=== PATIENT | female | born 1955 | race Caucasian/White ===

== ENCOUNTER 2020-04-02 21:46 | Inpatient (IN) | payer OTHER, SELFPAY ==
[2020-04-02] VITALS (8 sets, daily range): BP systolic 132–175; BP diastolic 63–76; PULSE 80–91; RESP 17–28; TEMP 36.6–36.9; O2SAT 88–97; BMI 44.0
--- NOTE | 2020-04-02 22:15 | EKG12_ITS ---
Test Reason : DYSRHYTHMIA Blood Pressure : / mmHG Vent. Rate : 083 BPM Atrial Rate : 083 BPM P-R Int : 148 ms QRS Dur : 086 ms QT Int : 402 ms P-R-T Axes : 052 041 056 degrees QTc Int : 472 ms Sinus rhythm with sinus arrhythmia with occasional Premature ventricular complexes Possible Left atrial enlargement Borderline ECG Confirmed by EMANUEL MACKAY, SANTOS ([id number]), society editor SHEA GU ([id number]) on 04/06/2020 9:59:46 AM Referred By: LOLI Confirmed By:GRECIA CASTELLANOS MD
--- NOTE | 2020-04-02 22:21 | ED.VIS.GEN ---
History of Present Illness Chief Complaint: Shortness of Breath Informant: Patient Onset: Days Context: Gradual Onset Timing: Continuous Current Severity: Moderate Maximum Severity: Moderate Narrative: Patient is a 64-year-old female with medical history significant for CHF and COPD, not on oxygen, who presents with worsening shortness of breath. Patient states over the past week, she has had increased shortness of breath. She states she cannot walk a distance without getting dyspneic. She states since the holiday season, she has gained 25 pounds. She has been compliant with her Lasix. She does admit to orthopnea and increasing leg edema. She denies chest pain. She denies fever or chills. She denies productive sputum. The patient was admitted in November for CHF exacerbation. She states that she was diuresed almost 10 L and felt markedly improved. Prior similar symptoms: Yes Recent Illness/Hospitalization: No Past Medical History - Allergies and Home Meds Allergies/Adverse Reactions: Allergies latex Allergy (Verified 10/27/14 15:24) Swelling pt states had incidence once when blowing up balloons that face swelled up. Pt unsure if it was latex or the powder oxycodone Allergy (Verified 10/27/14 15:24) Shortness of breath listed as allergy from pcp office-pt unsure if it was the medication or something else Penicillins Allergy (Verified 10/27/14 15:24) Unknown pregabalin [From Lyrica] Allergy (Verified 10/27/14 15:24) Anaphylaxis Primary Care Physician: Paige Gu DO [Primary Care Provider] - Prior records reviewed: Yes Past Medical History: - - COPD, hypertension, hyperlipidemia, CHF Surgical History: cholecystectomy Smoking Status: Former smoker - Family History Maternal Family History: Reports: - - diabetes Paternal Family History: Reports: - Review of Systems General: Denies: Chills, Fever, Sweats Eyes: Denies: Visual changes - bilaterally, Diplopia ENT: Denies: Rhinorrhea, Sore throat Cardiovascular: Denies: Chest pain, Palpitations Respiratory: Reports: Dyspnea, Dyspnea on exertion, Orthopnea. Denies: Cough Gastrointestinal: Denies: Abdominal pain, Nausea, Vomiting, Diarrhea, Melena, Hematochezia Genitourinary: Denies: Dysuria, Hematuria, Frequency Musculoskeletal: Denies: Back pain, Extremity Pain Skin: Denies: Rash, Wounds Neurological: Denies: Headache, Weakness, Numbness Physical Exam Vital Signs/Narrative: Vital Signs Temp Pulse Resp BP Pulse Ox 04/02/20 22:13 97.8 F 87 17 132/63 H 97 04/02/20 21:54 98.2 F 90 28 H 175/76 H 96 04/02/20 21:47 98.3 F 84 28 H 175/76 H 88 Inital Vital Signs reviewed: Yes General: Well nourished, Well developed, No Acute Distress Head: Normocephalic, Atraumatic Eyes: Perrl, EOMI ENT: Moist mucous membranes, No rhinorrhea Neck: Supple, Nontender Cardiovascular: Regular rate, Regular rhythm, No murmurs Respiratory: No distress, Chest nontender, Rales Abdomen: Soft, Nontender, Nondistended, Normal bowel sounds Back: Nontender, Normal Inspection Extremities: Nontender, Edema Skin: Normal color, No rash Neurological: Alert, Oriented x3, Cranial nerves II-XII grossly intact, Normal Strength, Normal Sensation Psychological: Normal affect, Normal Mood Diagnostic/Tx/Re-eval Chest X-Ray - ED: 1 View, Read by ED Physician, Normal, Mediastinum, Chronic Changes, Cardiomegaly, No Infiltrates - Rhythm Strip Rhythm Strip: Sinus Rhythm Rate: 80 Ectopy: None - EKG Initial EKG Interpretation: Sinus Rhythm, No Acute Injury Pattern Prior: No Prior - Medical Decision Making Patient presents to the emergency department with hypoxia, exertional shortness of breath, and weight gain. She does have crackles in both lung bases with a scant wheeze. Screening labs were obtained. EKG was obtained. It does demonstrate sinus rhythm with occasional PVCs. There is no acute ischemic change. Chest x-ray does not show significant effusions. There is some mild cephalization. Her BNP is within normal limits. Cardiac enzymes were also negative. I do feel the patient's exertional hypoxia is multifactorial. She is had significant weight gain and evidence of right-sided heart failure. She also has some scant wheezing. I will treat the patient with steroids and diuretics. I do feel at this point she would benefit from admission given her hypoxia. Impression 1. Exertional hypoxia 2. Dyspnea 3. Mild CHF ED Disposition - Plan for ED Patient: Referrals: Paige Gu DO [Primary Care Provider] -
[2020-04-02 22:55] LABS: Absolute Lymphocyte Count 1.99 X10^3/uL (0.83-4.51); Absolute Neutrophil Count 7.6 X10^3/uL (2.0-7.7); Basophil# 0.03 X10^3/uL; Basophil% 0.3 % (0-1); Eosinophil# 0.28 X10^3/uL; Eosinophils% 2.7 % (0-5); Hematocrit 41.1 % (37-47); Hemoglobin 13.3 g/dL (12.0-15.0); Lymphocyte # 1.99 X10^3/ul (4.0); Mean Corp Hgb Conc 32.4 g/dL (32-36); Mean Corpuscular Volume 95.8 fL (81-99); Mean Platelet Vol. 9.1 fl (6.2-12.0); Monocyte# 0.55 X10^3/uL; Monocyte% 5.2 % (0-10); NRBC Flagged by Analyzer 0 % (0-5); Neutrophil # 7.57 X10^3/uL (2.7-7.7); Neutrophil % 72.2 % (47-70); Platelet Count 227 K/mm3 (150-450); RBC Distribution Width CV 14.6 % (11.6-14.6); RBC Distribution Width SD 50.3 fl (35.1-43.9); Red Blood Count 4.29 M/mm3 (4.2-5.4); White Blood Count 10.5 K/mm3 (4.4-11.0)
[2020-04-02] MEDS: Aspirin 81 MG TAB.CHEW 324 MG PO (23:08)
[2020-04-02 23:11] LABS: BNP,B-Type NATRIURETIC PEPTIDE 67.3 pg/mL (0-100)
[2020-04-02 23:15] LABS: Anion Gap 6 (5-15); BUN 37 mg/dL (7-18); BUN/Creat Ratio 25.3 RATIO (10-20); Calcium,Total 9.6 mg/dL (8.5-10.1); Chloride 107 mmol/L (98-107); Creatinine, Serum 1.46 mg/dL (0.55-1.02); EST Glomerular Filtration Rate 38 mL/min (>60); Est Glom Filt Rate - Afr Amer 47 mL/min (>60); Estimated Creatinine Clearance 35.49 ml/min; Glucose 162 mg/dL (74-106); Magnesium 1.6 mg/dL (1.6-2.6); Potassium 3.5 mmol/L (3.5-5.1); Sodium Level 143 mmol/L (136-145)
--- NOTE | 2020-04-02 23:29 | ED.RN ---
Uses CPAP machine and does not see specialist but states Dr Gu for settings and states she thinks it is set on 17.
--- NOTE | 2020-04-02 23:32 | RAD_ITS ---
STUDY: X-RAY CHEST REASON FOR EXAM: Female, 64 years old. chest pain TECHNIQUE: Single frontal view of the chest. COMPARISON: None. FINDINGS: No pneumothorax or pleural effusion. No focal consolidation. Borderline cardiomegaly. Nonspecific elevation right hemidiaphragm. There are diffuse degenerative changes of the visualized thoracic spine. Normal visualized ribs, clavicles, and shoulders. There is no demonstrated abnormality of the visualized soft tissue structures of the upper abdomen. RAD/Chest 1 View (Portable) IMPRESSION: Borderline cardiomegaly. Nonspecific elevation of the right hemidiaphragm. No focal consolidation identified. Electronically Signed: Mracos Marie MD at 0:15 EST Tel , Service support ,
[2020-04-02] MEDS: Ipratropium/Albuterol Sulfate 3 ML AMPUL.NEB INHALATION (23:50)
[2020-04-03] VITALS (17 sets, daily range): BP systolic 130–164; BP diastolic 60–84; PULSE 66–94; RESP 13–18; TEMP 36.5–37.1; O2SAT 84–98; BMI 57.6; BMI 57.7
--- NOTE | 2020-04-03 | PCM.HP.STD ---
Problem List (1) CHF exacerbation Status: Acute Qualifiers: Heart failure type: diastolic Qualified Code(s): I50.33 - Acute on chronic diastolic (congestive) heart failure (2) COPD exacerbation Status: Acute (3) Hypoxia Status: Acute (4) CKD (chronic kidney disease), stage III Status: Chronic Qualifiers: Chronic kidney disease stage 3 subtype: unspecified whether 3a or 3b Qualified Code(s): N18.30 - Chronic kidney disease, stage 3 unspecified (5) Morbid obesity Status: Chronic (6) Anxiety and depression Status: Chronic (7) Diabetes mellitus, type II Status: Chronic Qualifiers: Diabetes mellitus filler leaf cutter long insulin use: with filler leaf cutter long use Diabetes mellitus complication status: with other specified complication Qualified Code(s): E11.69 - Type 2 diabetes mellitus with other specified complication; 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 of insulin (8) HLD (hyperlipidemia) Status: Chronic Qualifiers: Hyperlipidemia type: unspecified Qualified Code(s): E78.5 - Hyperlipidemia, unspecified (9) Former tobacco use Status: Chronic (10) Neuropathy Status: Chronic (11) HTN (hypertension) Status: Chronic Qualifiers: Hypertension type: essential hypertension Qualified Code(s): I10 - Essential (primary) hypertension History of Present Illness Date of Admission: 04/03/20 Chief Complaint: Dyspnea, edema, orthopnea The patient is a 64 y/o F w/ PMHx: MANNY, Anxiety and Depression, HTN, HLD, Morbid Obesity, Diabetes mellitus type II, Chronic COPD, Chronic CHF unclear type, Former Tobacco use who presents to the [facility] ED on 04/02/20 with history of worsening dyspnea especially over the last week, more severe with any exertion with weight gain of approximately 25 pounds starting this past year during the holidays to now with orthopnea and worsening lower extremity swelling prompting eventual ED presentation for evaluation. Reportedly patient was admitted 11/2019 and treated for CHF exacerbation however the records are not here at [facility] therefore this was at a different facility, possibly facility, noted she had been diuresed significantly (nearly ~ 25 lbs). She notes a home pulse oximeter was 60% with exertion. Work-up in the ED included T 90.3, heart rate 84, BP 175/76, respiratory rate 28, initially 88% on room air with improvement to 97% on 2 L nasal cannula, CBC with WBC 10.5, hemoglobin 13.3, platelet 2 7 platelet 227 without marked shift, BMP with BUN/creatinine 37/1.46, glucose 162 otherwise not marked appearing, magnesium 1.6, troponin 0.030, BNP 67.3, EKG with SR with PVCs without acute evidence of ischemia, chest x-ray with mild appearance congestion, rapid SARS Covid antigen negative. In the ED patient ministered aspirin 324 mg p.o. x1, douneb, lasix and solumedrol. Past Medical History Past Medical History (Chronic Problems): Chronic Problems CKD (chronic kidney disease), stage III (Chronic) Morbid obesity (Chronic) Anxiety and depression (Chronic) Diabetes mellitus, type II (Chronic) HLD (hyperlipidemia) (Chronic) Former tobacco use (Chronic) Neuropathy (Chronic) HTN (hypertension) (Chronic) Allergies latex Allergy (Verified 10/27/14 15:24) Swelling pt states had incidence once when blowing up balloons that face swelled up. Pt unsure if it was latex or the powder oxycodone Allergy (Verified 10/27/14 15:24) Shortness of breath listed as allergy from pcp office-pt unsure if it was the medication or something else Penicillins Allergy (Verified 10/27/14 15:24) Unknown pregabalin [From Lyrica] Allergy (Verified 10/27/14 15:24) Anaphylaxis Home Medications: Ambulatory Orders Medication Instructions Recorded Aspirin [Aspirin, Baby] 81 mg PO DAILY@0800 10/27/14 Cholecalciferol (VIT D3) [Vitamin 1,000 unit PO DAILY 10/27/14 D3] Citalopram [Celexa] 80 mg PO DAILY 10/27/14 Furosemide [Lasix] 40 mg PO DAILY PRN 10/27/14 Lisinopril [Zestril] 40 mg PO DAILY 10/27/14 Modafinil [Provigil] 100 mg PO DAILY 10/27/14 metFORMIN HCl [Glucophage] 1,000 mg PO BIDCM 10/27/14 traMADol [Ultram] 50 - 100 mg PO Q4H PRN PRN 10/27/14 Albuterol IH (ProAir) [Proair Hfa 2 puff INHALATION Q4H PRN PRN 04/02/20 (SP)Vent Pts] Allopurinol [Zyloprim] 200 mg PO DAILYCM 04/02/20 Bumetanide [Bumex] 2 mg PO DAILY 04/02/20 Carvedilol [Coreg] 12.5 mg PO BID 04/02/20 Fluticasone/Salmeterol [Advair 1 puff BID 04/02/20 500-50 Diskus] Gabapentin 600 mg PO TID 04/02/20 Insulin Aspart [Novolog Flexpen] 40 units SC TIDCM 04/02/20 Insulin Detemir [Levemir FlexPen] 60 units SC BID 04/02/20 Ropinirole HCl 8 mg PO QHS 04/02/20 buPROPion XL [Wellbutrin Xl] 150 mg PO DAILY 04/02/20 glipiZIDE [Glucotrol] 5 mg PO DAILY@0730 04/02/20 Surgical History: cholecystectomy, - - Toe amputations for infected diabetic ulcers. 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 Denies: Chills, Fever HEENT: Denies: Head Aches, Sinus Congestion, Sinus Drainage Cardiovascular: Reports: Edema, Orthopnea. Denies: Chest Pain, Palpitations Respiratory: Reports: Shortness of Breath, Shortness of breath upon exertion. Denies: Cough, Shortness of breath at rest, Sputum production Gastrointestinal: Denies: Abdominal Pain, Nausea, Vomiting Genitourinary: Denies: Dysuria Musculoskeletal: Reports: Joint Pain. Denies: Joint Tenderness Skin: Denies: Rash, Wounds Neurological: Denies: Numbness, Tingling, Focal weakness Psychiatric: Reports: Anxiety, Depression. Denies: Homicidal Ideations, Suicidal Ideations Hematologic/ Lymphatic: Denies: Easy Bruising, Easy Bleeding VTE Information - Inpt Only VTE Present on Admission: No VTE Mechan Device Prophylaxis: SCD's VTE Pharm Prophylaxis ordered?: Yes Patient Problems: Active and Suspected Problems CHF exacerbation (Acute) COPD exacerbation (Acute) Hypoxia (Acute) Subjective: Patient seated upright in the ED bed, notes unable to lay flat, notes dyspnea primarily with exertion. Objective: Physical Examination: General: awake, alert, oriented x 3 and cooperative, seated upright in the ED bed in no apparent distress. Skin: normal color, turgor, no icterus, cyanosis. HEENT: AT/NC, EOMI, PERRLA, MMM, no carotid bruits, + JVD. Lungs: Diminished breath sounds, greater bases, moderate effort, seated ari ria straight up in the ED bed, no obvious evidence of distress, minimal rales but very diminished, occasional expiratory wheeze. Heart: Regular rate and rhythm; no gallop, rub audible. Abdomen: soft, morbidly obese, NTTP, difficult to discern distention secondary to habitus, distant normal BS, unable to discern HSM secondary to habitus. Extremities: no cyanosis or clubbing, bilateral lower extremity pedal to proximal aguilar edema, not severely pitting in nature. Neurological: patient awake, alert, oriented as noted; cognitive function intact; pupils equally reactive to light and accomodation; cranial nerves II-XII grossly normal, moving all 4 extremities, no focal deficits, strength severely global decrease secondary to acute presentation and complaints. Psychiatric: affect appears fatigued otherwise normal, no acute evidence of depressive or anxiety feelings. - Physical Exam Vitals/I&O's: Vital Signs Temp Pulse Resp BP Pulse Ox 98.4 F 91 17 134/73 H 96 04/02/20 23:00 04/02/20 23:00 04/02/20 23:00 04/02/20 23:11 04/02/20 23:00 Oxygen Flow Rate (L/min) 2 Oxygen Delivery Method Nasal Cannula Weight: 264 lb 8.875 oz Body Mass Index (BMI) 44.0 Microbiology Past 72 Hours 04/02/20 22:31 Mucosa - Nasopharyngeal SARS-CoV-2 Antigen (Rapid) - Final Laboratory Results 04/02/20 22:45: WBC 10.5, RBC 4.29, Hgb 13.3, Hct 41.1, MCV 95.8, MCH 31.0, MCHC 32.4, RDW Std Deviation 50.3 H, RDW Coeff of Varun 14.6, Plt Count 227, MPV 9.1, Immature Gran % (Auto) 0.600, Neut % (Auto) 72.2 H, Lymph % (Auto) 19.0, Bracken % (Auto) 5.2, Eos % (Auto) 2.7, Baso % (Auto) 0.3, Absolute Neuts (auto) 7.6, Absolute Lymphs (auto) 1.99, Nucleated RBC % 0 04/02/20 22:45: Sodium 143, Potassium 3.5, Chloride 107, Carbon Dioxide 30.0, Anion Gap 6, BUN 37 H, Creatinine 1.46 H, Estim Creat Clear Calc 35.49, Est GFR (MDRD) Af Amer 47 L, Est GFR (MDRD) Non-Af 38 L, BUN/Creatinine Ratio 25.3 H, Glucose 162 H, Calcium 9.6, Magnesium 1.6, Troponin I 0.030 04/02/20 22:45: B-Natriuretic Peptide 67.3 Assessment/Plan All Active Problems CHF exacerbation (Acute) COPD exacerbation (Acute) Hypoxia (Acute) Cellulitis of second toe, right (Acute) Diabetes (Acute) The patient is a 64 y/o F w/ PMHx: MANNY, Anxiety and Depression, HTN, HLD, Morbid Obesity, Diabetes mellitus type II, Chronic COPD, Chronic CHF unclear type, Former Tobacco use who presents to the [facility] ED on 04/02/20 with history of worsening dyspnea especially over the last week, more severe with any exertion with weight gain of approximately 25 pounds starting this past year during the holidays to now with orthopnea and worsening lower extremity swelling prompting eventual ED presentation for evaluation. 1. Exertional Dyspnea, Suspected CHF Exacerbation, Likely Diastolic complicated by #2 with Hypoxia: ED evaluation with EKG with SR with PVCs without acute evidence of ischemia, chest x-ray with mild appearance congestion, trop normal x 1. Patient in the ED with normal BNP despite hx of weight gain and edema as well as noted hypoxia, , patient administered IV lasix in the ED, will admit to PCU, maintain on cardiac telemetry, obtain cardiac enzyme series, obtain serial EKGs, gently diuresis with IV lasix given notable weight gain and edema, monitor I/Os, maintain on intake restriction, continue medical therapy w/ asa, BB, ACEI. Not on statin therapy with plan FLP in a.m. Will obtain TSH, ED magnesium level 1.6. Most recent ECHO noted 10/30/2014 with normal LV systolic function, EF 65%, mildly enlarged LA, mild MVI, trivial TVI, RVSP 36 mmHg, transmitral Doppler flow suggestive of impaired relaxation LV. PRN morphine to decrease afterload, continue oxygen supplementation, if necessary will position w/ upright position with legs off bed to decrease preload. Will place snug Darshan wraps. 2. Acute on Chronic COPD excacerbation with Hypoxia: Will maintain on oxygen with wean as tolerated to room air, continue solumedrol regimen, maintain on ATC duonebs, PRN albuterol, HOB, IS parameters, obtain respiratory viral panel and sputum Cx. Given afebrile, no marked WBC elevation or L shift will defer abx therapy. 3. Chronic Kidney Disease Stage III with renal insufficiency versus progressed disease: Admission BUN/Cr 37/1.46, baseline renal function 1.0, repeat BMP in AM. 4. Morbid Obesity: Weight loss and lifestyle changes encouraged, nutrition consulted. 5. Anxiety and depression: We will continue patient on citalopram and bupropion regimen. 6. Diabetes mellitus type II with neuropathy: We will hold oral regimen, continue home insulin regimen, ADA diet, accu checks w/ ISS, continue home gabapentin regimen. 7. Hypertension: Continue home regimen including Coreg, lisinopril, in addition to IV Lasix as noted, PRN hydralazine. 8. Hyperlipidemia: Not on statin therapy, add moderate dose, FLP in AM. 9. Former tobacco use: Encourage continued tobacco cessation. 10. MANNY: We will placed on BiPAP nightly. 11. DVT prophylaxis: SCDs, Lovenox. 12. CODE status: Patient THONY is her daughter Oksana Aguilar and living will is currently in place. Discussed CODE status at length including difference between FULL code, DNR-CCA and DNR-CC status. Following discussions about the differences in these status, requested DNR-CCA, no intubation status. Advanced Care Planning Face to Face Time: 16 minutes. Inpatient E&M: 53363 Init Hosp L3 Procedures: 54809 Advncd Care Plan 30 Min
[2020-04-03] MEDS: Furosemide 40 MG/4 ML Vial IV ×3 (00:05→17:17)
[2020-04-03] MEDS: MethylPREDNISolone 125 MG/2 ML Vial IV (00:05)
--- NOTE | 2020-04-03 00:52 | ECHOCS_ITS ---
Reason For Study: CHF Procedure This was a 2D Doppler, Color Flow transthoracic echocardiogram. The study was technically difficult. Contrast injection was performed. Exam performed portable in patient room. Left Ventricle Normal LV size. Left ventricular systolic function is normal. The estimated ejection fraction is 70 %. There is evidence of diastolic dysfunction. No regional wall motion abnormalities noted. Right Ventricle Normal RV size. Normal systolic function. Atria The left atrium is mildly enlarged. Normal right atrium. No doppler evidence for ASD. Mitral Valve There is mild mitral annular calcification. Normal mitral valve. Mild (1+) mitral valve insufficiency. Tricuspid Valve Normal tricuspid valve. Trivial tricuspid valve insufficiency. Right ventricular systolic pressure estimated to be 56 mmHg. Aortic Valve Trisinus/trileaflet aortic valve. Mild focal aortic valve calcification. Pulmonic Valve The pulmonic valve is not well visualized. Great Vessels Normal sized aortic root. Pericardium/Pleural No pericardial effusion. Medication Diluted definity 3.0ml given slow IV push to enhance endocardial definition. MMode/2D Measurements & Calculations LVIDd: 5.1 cm IVSd: 1.2 cm Ao root diam: 3.2 cm LVIDs: 3.3 cm LVPWd: 1.2 cm FS: 35.1 % LAV(MOD-bp): 74.9 ml LVAd ap4: 34.9 cm2 SV(MOD-sp4): 89.5 ml LAV(MOD-bp) Indexed: 30.0 ml/m2 EDV(MOD-sp4): 124.3 ml LAV(MOD-sp2): 76.8 ml EDV(sp4-el): 127.8 ml LAV(MOD-sp4): 67.1 ml LVAs ap4: 15.3 cm2 ESV(MOD-sp4): 34.8 ml ESV(sp4-el): 34.7 ml EF(MOD-sp4): 72.0 % EF(sp4-el): 72.9 % SV(sp4-el): 93.2 ml LA A4 area: 22.1 cm2 LA dimension(2D): 4.5 cm RA A4 area: 14.6 cm2 Time Measurements MV dec time: 0.28 sec Doppler Measurements & Calculations MV E max macario: 95.6 cm/sec Lat Peak E' Macario: 7.3 cm/sec Med Peak E' Macario: 5.7 cm/sec MV A max macario: 141.5 cm/sec E/E' lat: 13.1 E/E' med: 16.6 MV E/A: 0.68 MV V2 max: 135.0 cm/sec Ao V2 max: 164.0 cm/sec LV V1 max: 112.8 cm/sec MV max P.3 mmHg Ao max P.8 mmHg LV V1 max P.1 mmHg MV V2 mean: 78.7 cm/sec MV mean P.8 mmHg MV V2 VTI: 32.7 cm TR max macario: 363.2 cm/sec MV P1/2t-pr_phl: 71.0 msec TR max P.8 mmHg Interpretation Summary The study was technically difficult. Contrast injection was performed. Left ventricular systolic function is normal. The estimated ejection fraction is 70 %. The left atrium is mildly enlarged. There is mild mitral annular calcification. Mild (1+) mitral valve insufficiency. Trivial tricuspid valve insufficiency. Mild focal aortic valve calcification. Right ventricular systolic pressure estimated to be 56 mmHg c/w severe pulmonary hypertension. There is evidence of diastolic dysfunction. Ordering Physician: Zayda Bowman Referring Physician: LACI HERNANDEZ Performed By: Heydi Pride, RDCS, RVT
[2020-04-03] MEDS: Gabapentin 600 MG Tablet PO ×4 (02:02→21:36)
[2020-04-03] MEDS: Carvedilol 12.5 MG Tablet PO ×3 (02:02→21:32)
[2020-04-03 02:10] LABS: Bedside Glucose 171 mg/dL (70-110)
[2020-04-03] MEDS: Pramipexole Di-HCl 1 MG Tablet 1.5 MG PO ×2 (02:52→21:37)
--- NOTE | 2020-04-03 05:55 | EKG12_ITS ---
Test Reason : AM EKG Blood Pressure : / mmHG Vent. Rate : 072 BPM Atrial Rate : 072 BPM P-R Int : 152 ms QRS Dur : 094 ms QT Int : 420 ms P-R-T Axes : 062 064 063 degrees QTc Int : 459 ms Sinus rhythm with marked sinus arrhythmia Otherwise normal ECG When compared with ECG of 02-APR-2020 22:21, MANUAL COMPARISON REQUIRED, DATA IS UNCONFIRMED Confirmed by WINSOME MACKAY, JEANNIE ([id number]), newspaper photo editor SHEA GU ([id number]) on 04/07/2020 1:05:19 PM Referred By: DR ROSADO Confirmed By:JEANNIE SCHUMACHER MD
[2020-04-03 06:15] LABS: Absolute Lymphocyte Count 0.86 X10^3/uL (0.83-4.51); Absolute Neutrophil Count 6.8 X10^3/uL (2.0-7.7); Basophil# 0.03 X10^3/uL; Basophil% 0.4 % (0-1); Eosinophil# 0.02 X10^3/uL; Eosinophils% 0.3 % (0-5); Hematocrit 40.7 % (37-47); Hemoglobin 13.3 g/dL (12.0-15.0); Lymphocyte # 0.86 X10^3/ul (4.0); Mean Corp Hgb Conc 32.7 g/dL (32-36); Mean Corpuscular Hgb 31.4 pg (27.0-32.0); Mean Platelet Vol. 9.6 fl (6.2-12.0); Monocyte# 0.11 X10^3/uL; Monocyte% 1.4 % (0-10); NRBC Flagged by Analyzer 0 % (0-5); Neutrophil # 6.76 X10^3/uL (2.7-7.7); Neutrophil % 86.3 % (47-70); Platelet Count 209 K/mm3 (150-450); RBC Distribution Width CV 14.6 % (11.6-14.6); RBC Distribution Width SD 50.4 fl (35.1-43.9); Red Blood Count 4.24 M/mm3 (4.2-5.4); White Blood Count 7.8 K/mm3 (4.4-11.0)
[2020-04-03] MEDS: 0.9% Saline Lock 10 ML Syringe IV ×3 (06:27→17:18)
[2020-04-03 06:49] LABS: ALB/GLOB Ratio 0.8 RATIO (0.9-2.4); AST(SGOT) 14 U/L (15-37); Alanine Aminotransfer ALT/SGPT 22 U/L (13-56); Albumin, Serum 3.3 g/dL (3.2-5.0); Alkaline Phosphatase 101 U/L (45-117); Anion Gap 10 (5-15); BUN 38 mg/dL (7-18); BUN/Creat Ratio 25.5 RATIO (10-20); Calcium,Total 9.1 mg/dL (8.5-10.1); Chloride 103 mmol/L (98-107); Cholesterol 182 mg/dL (200); Creatinine, Serum 1.49 mg/dL (0.55-1.02); EST Glomerular Filtration Rate 38 mL/min (>60); Est Glom Filt Rate - Afr Amer 45 mL/min (>60); Estimated Creatinine Clearance 34.77 ml/min; Globulin 4.1 g/dL (2.2-4.2); Glucose 354 mg/dL (74-106); High Density Lipoprotein 44 mg/dL; Protein, Total 7.4 g/dL (6.4-8.2); Sodium Level 140 mmol/L (136-145); Triglycerides 92 mg/dL; Very Low Density Lipoprotein 18 mg/dL (5-40)
[2020-04-03] MEDS: Ipratropium/Albuterol Sulfate 3 ML AMPUL.NEB INHALATION ×4 (07:25→18:29)
[2020-04-03] MEDS: Insulin Lispro 100 UNIT/ML INSULN.PEN 40 UNIT SC ×3 (08:16→16:42)
[2020-04-03] MEDS: Insulin Lispro 100 UNIT/ML INSULN.PEN SC ×4 (08:17→21:35)
[2020-04-03] MEDS: buPROPion (XL) 150 MG TABLET.XL PO (08:20)
[2020-04-03] MEDS: Allopurinol 100 MG Tablet 200 MG PO (08:20)
[2020-04-03 08:21] LABS: Bedside Glucose 434 mg/dL (70-110)
[2020-04-03] MEDS: FLUoxetine 20 MG Capsule 40 MG PO (08:21)
[2020-04-03] MEDS: Lisinopril 40 MG Tablet PO (08:21)
[2020-04-03] MEDS: Aspirin 81 MG TAB.CHEW PO (08:21)
[2020-04-03] MEDS: Tolterodine Tartrate 2 MG CAP.SA PO (08:22)
[2020-04-03] MEDS: Enoxaparin 40 MG/0.4 ML Syringe SC (08:35)
[2020-04-03 08:48] LABS: Procalcitonin 0.12 ng/mL (0.00-0.09)
--- NOTE | 2020-04-03 10:30 | CASEMGMT ---
DEREK IYER assessment: Face to Face with patient for initial transition planning/care coordination assessment. DEREK IYER introduced self and role at [facility], pt voices understanding and consents to assessment. Pt is sitting up in bed in no distress on 3L nc at this time. Pt is A/Ox4 and answers all questions appropriately at this time. Care providers, pharmacy, and demographics verified, pt only wants daughter listed at this time. Presentation: Hx of CHF, COPD-c/o trouble breathing, hypoxia last night and today per pt. Pt states does not have home oxygen. 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 Reynoso at this time as a friend recommended. Pt given contact for Dr. Reynoso and local pulmonary dr's per daughter request. Preferred Pharmacy: [facility] Insurance: MMO Prescription Benefit: MMO Living Will/HPOA: Pt has LW/HPOA and is aware that they are on file at [facility] at this time. Pt's daughter, Oksana Felix, is HPOA. LNOK: Oksana Felix, daughter/HPOA Living Arrangements: Pt states lives with in 1 story home with 3 steps in and states no concerns at home. 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 Pt states does use assistive devices at home for ADL's. Transportation: Pt states drives self and states no transportation concerns. DME/HHC: Pt states has the following DME: canex2, walker, w/c, grab bars, shower chair, and used cpap(from a friend). Pt states was tested and qualified for bipap 4-5 years ago but was going to have $50 co-pay for 10 months and states could not afford so she got a cpap from a friend and has been using since. Per pt, she only uses about 2-4hrs/night at this time. Pt states she has been working with Dr. Gu and Gillian at [facility] trying to see what else she can get as her breathing has been getting worse. Per Gillian at [facility], they have been trying to see if pt would qualify for NIV at this time as this would also assist with her CHF and pt could get financial assist with the NIV as well. Pt has not had recent PFT's and does not currently see pulmonology and is reluctant 'to see more doctors' at this time. Per Gillian, they could possibly qualify pt with an ABG. Dr. Grissom aware and ABG on room air ordered at this time. CM to follow. Pt states has had HHC in the past but has not been to SNF. Pt voices no concerns with going home at time of discharge. Pt is on disability. Pt states has not smoked cigarettes in years and rarely drinks ETOH. Pt states no further concerns/needs at this time. CM to follow for NIV order and any further discharge planning/needs. Advised pt to ask for CM if any further questions/concerns/needs arise, voices understanding. Pt Goal: Home Plan: Home Noel REED CM
[2020-04-03 11:45] LABS: Bedside Glucose 436 mg/dL (70-110)
[2020-04-03 12:40] LABS: Base Excess 1 mmol/L (-2 to +2); Bicarbonate 25.2 mmol/L (22-26); Blood Gas Specimen Type ART; PO2 66 mmHG (75-100); SITE L Radial; SO2 93 % (95-99); Total Carbon Dioxide 26 mmol/L; pCO2 37.3 mmHg (35-45); pH 7.44 (7.35-7.45)
[2020-04-03 16:50] LABS: Bedside Glucose 432 mg/dL (70-110)
--- NOTE | 2020-04-03 17:29 | CCHN_ITS ---
Hospitalist Note Patient was seen and examined today, she has a past history of diastolic heart failure and was on the hospital in [place] in November of last year. Patient's EF at that time was normal. Patient has obstructive sleep apnea and is noncompliant with treatment due to the cost of BiPAP. I obtain an echocardiogram on the patient today which showed normal EF and evidence of severe pulmonary hypertension. Patient will need follow-up as an outpatient with the pulmonary medicine physician which I will discuss with her. I did an arterial blood gas on her today on room air at rest which showed a PO2 of 66 at rest, her PCO2 was 37.3. We will continue IV Lasix for now and I have stopped her IV Solu-Medrol because I do not think she has an exacerbation of COPD at this time, patient has no wheezing and breath sounds are diminished bilateral. I have no solution at the present time for the fact the patient cannot afford $60 a month for her BiPAP. I have recommended that she call [facility] or [facility] to see if they have refurbished BiPAP.
[2020-04-03] MEDS: Budesonide Respules 0.5 MG/2 ML AMPUL.NEB. INHALATION (18:29)
[2020-04-03 21:36] LABS: Bedside Glucose 392 mg/dL (70-110)
[2020-04-03] MEDS: Atorvastatin Calcium 40 MG Tablet PO (21:36)
--- NOTE | 2020-04-03 23:00 | CPS ---
Patient refuses to wear the bipap at night
[2020-04-04] VITALS (13 sets, daily range): BP systolic 106–132; BP diastolic 45–114; PULSE 62–91; RESP 12–20; TEMP 35.9–36.7; O2SAT 84–97
[2020-04-04] MEDS: Gabapentin 600 MG Tablet PO ×2 (06:44→14:37)
[2020-04-04 06:55] LABS: Bedside Glucose 252 mg/dL (70-110)
[2020-04-04] MEDS: Budesonide Respules 0.5 MG/2 ML AMPUL.NEB. INHALATION (06:57)
[2020-04-04] MEDS: Ipratropium/Albuterol Sulfate 3 ML AMPUL.NEB INHALATION ×2 (06:57→11:11)
[2020-04-04 07:27] LABS: Anion Gap 9 (5-15); BUN 63 mg/dL (7-18); BUN/Creat Ratio 33.7 RATIO (10-20); Chloride 101 mmol/L (98-107); Creatinine, Serum 1.87 mg/dL (0.55-1.02); EST Glomerular Filtration Rate 29 mL/min (>60); Est Glom Filt Rate - Afr Amer 35 mL/min (>60); Estimated Creatinine Clearance 27.71 ml/min; Glucose 262 mg/dL (74-106); Potassium 4.1 mmol/L (3.5-5.1); Sodium Level 138 mmol/L (136-145)
[2020-04-04 09:05] LABS: Bedside Glucose 271 mg/dL (70-110)
[2020-04-04] MEDS: Insulin Lispro 100 UNIT/ML INSULN.PEN 40 UNIT SC ×2 (09:10→11:15)
[2020-04-04] MEDS: Insulin Lispro 100 UNIT/ML INSULN.PEN SC ×3 (09:10→21:02)
[2020-04-04] MEDS: Enoxaparin 40 MG/0.4 ML Syringe SC (09:11)
[2020-04-04] MEDS: Tolterodine Tartrate 2 MG CAP.SA PO (09:11)
[2020-04-04] MEDS: FLUoxetine 20 MG Capsule 40 MG PO (09:11)
[2020-04-04] MEDS: Allopurinol 100 MG Tablet 200 MG PO (09:11)
[2020-04-04] MEDS: Carvedilol 12.5 MG Tablet PO ×2 (09:11→21:02)
[2020-04-04] MEDS: Aspirin 81 MG TAB.CHEW PO (09:11)
[2020-04-04] MEDS: Lisinopril 40 MG Tablet PO (09:11)
[2020-04-04] MEDS: buPROPion (XL) 150 MG TABLET.XL PO (09:12)
[2020-04-04] MEDS: Furosemide 40 MG/4 ML Vial IV (09:12)
[2020-04-04] MEDS: 0.9% Saline Lock 10 ML Syringe IV ×2 (09:13→21:04)
[2020-04-04 11:40] LABS: Bedside Glucose 205 mg/dL (70-110)
--- NOTE | 2020-04-04 12:46 | NURSING ---
Patient refusing to complete home oxygenation testing. Patient states I will not go home with any oxygen, I am not to that point yet Documented at rest on room air and walking on room air but patient would not allow for oxygen to be applied and do walking test with oxygen.
--- NOTE | 2020-04-04 16:14 | PN_ITS ---
Patient Problems: Active and Suspected Problems CHF exacerbation (Acute) Hypoxia (Acute) Subjective: Patient was seen and examined today, she initially did not want to go home on supplemental oxygen, I talked with her at length about the importance of using oxygen if she needs it and she is agreed to consider it if she needs it on discharge. Patient's creatinine has elevated somewhat today and I have decided to change her over to oral Bumex and recheck her labs in the morning. I will again walker tomorrow to see if she qualifies for home O2, she stated her family would probably help her with BiPAP and I have given nursing the order for her to be on BiPAP tonight if they can determine her settings with 2 L of O2. - Physical Exam Vitals/I&O's: Vital Signs Temp Pulse Resp BP Pulse Ox 97.9 F 73 18 106/61 90 04/04/20 10:50 04/04/20 15:00 04/04/20 10:50 04/04/20 10:50 04/04/20 12:45 Oxygen Flow Rate (L/min) [ 0 AMBULATING on Room Air] Oxygen Flow Rate (L/min) [At 0 REST on Room Air] Oxygen Flow Rate (L/min) 3 Oxygen Delivery Method Room Air Weight: 156.6 kg Body Mass Index (BMI) 57.6 Intake and Output for Last 24 Hours 04/02/20 04/03/20 04/04/20 23:59 23:59 23:59 Intake Total 1600 / 1600 540 / 540 Output Total 2700 / 2700 200 / 200 Balance -1100 / -1100 340 / 340 General: Alert, Oriented x3, Cooperative, No apparent distress, Well developed, Well nourished HEENT: Atraumatic, PERRLA, EOMI, Normocephalic Oral: Moist Mucosa Neck: Supple, No JVD, Trachea Midline, Thyroid Normal Size and Texture Lungs: Clear to auscultation, No rhonchi, No wheeze, Diminished Cardiovascular: Regular rate, Regular Rhythm, Normal S1, Normal S2, No murmurs, PMI Normal, No rub noted, No Gallop Abdomen: Bowel Sounds Present, Soft, Non Tender, Non-Distended, Obese Extremities: No clubbing, No cyanosis, Capillary Refill Less than 3 Seconds Skin: No rashes, No breakdown Musculoskeletal: No Tenderness to Palpation of Joints or Extremities Neurological: Cranial nerves II-XII grossly intact, Neuro grossly intact, Sensory exam intact to light touch and pain Psych/Mental Status: Normal Affect, Appropriate, Alert and oriented to time, place, person, mood and affect Microbiology Past 72 Hours 04/04/20 00:55 Sputum, Expectorated/Coughed Gram Stain - Final 04/03/20 03:00 Mucosa - Nasopharyngeal Respiratory Panel (PCR) - Final 04/02/20 22:31 Mucosa - Nasopharyngeal SARS-CoV-2 Antigen (Rapid) - Final Laboratory Results 04/03/20 16:41: POC Glucose 432 H 04/03/20 21:26: POC Glucose 392 H 04/04/20 06:43: POC Glucose 252 H 04/04/20 06:57: Sodium 138, Potassium 4.1, Chloride 101, Carbon Dioxide 28.0, Anion Gap 9, BUN 63 H, Creatinine 1.87 H, Estim Creat Clear Calc 27.71, Est GFR (MDRD) Af Amer 35 L, Est GFR (MDRD) Non-Af 29 L, BUN/Creatinine Ratio 33.7 H, Glucose 262 H, Calcium 9.0 04/04/20 09:02: POC Glucose 271 H 04/04/20 11:14: POC Glucose 205 H Current Medications Acetaminophen (Acetaminophen 325 Mg Tablet) 650 mg PO Q6H PRN PRN PRN Reason: Pain Score 1-10/Temp > 100.7 F Albuterol Sulfate (Albuterol 2.5 Mg/3 Ml Vial.Neb.) 2.5 mg INHALATION Q2H PRN PRN PRN Reason: Dyspnea, wheezing Albuterol/Ipratropium (Ipratropium/Albuterol Sulfate 3 Ml Ampul.Neb) 3 ml INHALATION Q4HWA.RT [facility] Last Admin: 04/04/20 11:11 Dose: 3 ml Documented by: Allopurinol (Allopurinol 100 Mg Tablet) 200 mg PO DAILYCM [facility] Last Admin: 04/04/20 09:11 Dose: 200 mg Documented by: Aspirin (Aspirin 81 Mg Tab.Chew) 81 mg PO DAILY@0800 [facility] Last Admin: 04/04/20 09:11 Dose: 81 mg Documented by: Atorvastatin Calcium (Atorvastatin Calcium 40 Mg Tablet) 40 mg PO QHS [facility] Last Admin: 04/03/20 21:36 Dose: 40 mg Documented by: Budesonide (Budesonide Respules 0.5 Mg/2 Ml Ampul.Neb.) 0.5 mg INHALATION BID.RT [facility] Last Admin: 04/04/20 06:57 Dose: 0.5 mg Documented by: Bumetanide (Bumetanide 0.5 Mg Tablet) 1 mg PO Q12 [facility] Bupropion HCl (Bupropion (Xl) 150 Mg Tablet.Xl) 150 mg PO DAILY [facility] Last Admin: 04/04/20 09:12 Dose: 150 mg Documented by: Carvedilol (Carvedilol 12.5 Mg Tablet) 12.5 mg PO BID [facility] Last Admin: 04/04/20 09:11 Dose: 12.5 mg Documented by: Cholecalciferol (Cholecalciferol (Vit D3) 1,000 Unit (25mcg)) 1,000 unit PO DAILY [facility] Last Admin: 04/04/20 09:12 Dose: 1,000 unit Documented by: Enoxaparin Sodium (Enoxaparin 40 Mg/0.4 Ml Syringe) 40 mg SC DAILY [facility] Last Admin: 04/04/20 09:11 Dose: 40 mg Documented by: Fluoxetine HCl (Fluoxetine 20 Mg Capsule) 40 mg PO DAILY [facility] Last Admin: 04/04/20 09:11 Dose: 40 mg Documented by: Gabapentin (Gabapentin 400 Mg Capsule) 400 mg PO TIDCM [facility] Guaifenesin (Guaifenesin 10 Ml Udc (200mg/10ml)) 20 ml PO Q4H PRN PRN PRN Reason: COUGH Sodium Chloride () 250 mls @ 15 mls/hr IV .[id number] PRN PRN Reason: Saline Flush Sodium Chloride () 250 mls @ 15 mls/hr IV .[id number] PRN PRN Reason: Additional IVPB Infusion Insulin Glargine (Insulin Glargine 100 Units/Ml Pen) 60 units SC BID [facility] Last Admin: 04/04/20 09:12 Dose: 60 units Documented by: Insulin Human Lispro (Insulin Lispro 100 Unit/Ml Insuln.Pen) 40 unit SC TIDCM [facility] Last Admin: 04/04/20 11:15 Dose: 40 units Documented by: Insulin Human Lispro (Insulin Lispro 100 Unit/Ml Insuln.Pen) 0 unit SC ACHS [facility]; Protocol Last Admin: 04/04/20 11:16 Dose: 2 units Documented by: Lisinopril (Lisinopril 40 Mg Tablet) 40 mg PO DAILY [facility] Last Admin: 04/04/20 09:11 Dose: 40 mg Documented by: Melatonin (Melatonin 3 Mg Tablet) 3 mg PO QHS PRN PRN PRN Reason: INSOMNIA Ondansetron HCl (Ondansetron 4 Mg/2 Ml Vial) 4 mg IV Q8H PRN PRN PRN Reason: NAUSEA/VOMITING Pramipexole Dihydrochloride (Pramipexole Di-Hcl 1 Mg Tablet) 1.5 mg PO QHS [facility] Last Admin: 04/03/20 21:37 Dose: 1.5 mg Documented by: Senna/Docusate Sodium (Senna/Docusate Sodium 1 Tablet) 2 tablet PO BID PRN PRN PRN Reason: Constipation Sodium Chloride (0.9% Saline Lock 10 Ml Syringe) 10 - 40 ml IV UD PRN PRN Reason: SALINE FLUSH Last Admin: 04/04/20 09:13 Dose: 10 ml Documented by: Tolterodine Tartrate (Tolterodine Tartrate 2 Mg Cap.Sa) 2 mg PO DAILY [facility] Last Admin: 04/04/20 09:11 Dose: 2 mg Documented by: Tramadol HCl (Tramadol 50 Mg Tablet) 50 - 100 mg PO Q4H PRN PRN PRN Reason: pain [id number] Medical Necessity - Tobacco Use Smoking Status: Former smoker Tobacco Use: Non-smoker Assessment/Plan All Active Problems CHF exacerbation (Acute) COPD exacerbation (Ruled-out) Hypoxia (Acute) Cellulitis of second toe, right (Resolved) #1 acute on chronic diastolic congestive heart failure-patient's IV Lasix was stopped, she was put on oral Bumex #2 severe pulmonary hypertension-I talked at length with the patient about the importance of seeing a grant specialist as an outpatient #3 obstructive sleep apnea-patient will need to get BiPAP set up as an outpatient #4 morbid obesity #5 type 2 diabetes #6 chronic kidney disease stage III secondary to type 2 diabetes #7 chronic obstructive pulmonary disease #8 noncompliance with medical regimen-patient admitted to this examiner today that she does not use her inhalers as directed home I have urged her to use her Advair twice a day and her proair inhaler 4 times a day. #9 hypoxia secondary to #1 and #7-I will check the patient's pulse ox at rest and ambulating on room air tomorrow to determine whether she meets criteria for oxygen #10 neuropathy secondary to type 2 diabetes #11 essential hypertension #12 anxiety and depression Inpatient E&M: 75451 Subs Hosp L2
[2020-04-04] MEDS: Gabapentin 400 MG Capsule PO (16:38)
[2020-04-04] MEDS: Bumetanide 0.5 MG Tablet 1 MG PO (18:00)
[2020-04-04 20:55] LABS: Bedside Glucose 78 mg/dL (70-110)
[2020-04-04] MEDS: Atorvastatin Calcium 40 MG Tablet PO (21:03)
[2020-04-04] MEDS: Pramipexole Di-HCl 1 MG Tablet 1.5 MG PO (21:03)
[2020-04-04 22:10] LABS: Bedside Glucose 224 mg/dL (70-110)
[2020-04-05] VITALS (7 sets, daily range): BP systolic 111–119; BP diastolic 41–53; PULSE 71–81; RESP 18; TEMP 36–36.8; O2SAT 85–99
[2020-04-05 01:16] LABS: Bedside Glucose 170 mg/dL (70-110)
[2020-04-05 07:03] LABS: Anion Gap 13 (5-15); BUN 87 mg/dL (7-18); BUN/Creat Ratio 37.2 RATIO (10-20); Calcium,Total 8.6 mg/dL (8.5-10.1); Chloride 99 mmol/L (98-107); Creatinine, Serum 2.34 mg/dL (0.55-1.02); EST Glomerular Filtration Rate 22 mL/min (>60); Est Glom Filt Rate - Afr Amer 27 mL/min (>60); Estimated Creatinine Clearance 22.14 ml/min; Glucose 210 mg/dL (74-106); Potassium 3.9 mmol/L (3.5-5.1); Sodium Level 139 mmol/L (136-145)
[2020-04-05] MEDS: Allopurinol 100 MG Tablet 200 MG PO (07:38)
[2020-04-05] MEDS: Gabapentin 400 MG Capsule PO ×2 (07:38→11:15)
[2020-04-05] MEDS: Insulin Lispro 100 UNIT/ML INSULN.PEN SC (07:39)
[2020-04-05] MEDS: Insulin Lispro 100 UNIT/ML INSULN.PEN 40 UNIT SC (07:39)
[2020-04-05] MEDS: Aspirin 81 MG TAB.CHEW PO (07:39)
[2020-04-05 07:56] LABS: Bedside Glucose 216 mg/dL (70-110)
[2020-04-05] MEDS: Carvedilol 12.5 MG Tablet PO (09:34)
[2020-04-05] MEDS: Enoxaparin 40 MG/0.4 ML Syringe SC (09:34)
[2020-04-05] MEDS: 0.9% Saline Lock 10 ML Syringe IV (09:35)
[2020-04-05] MEDS: Tolterodine Tartrate 2 MG CAP.SA PO (09:35)
[2020-04-05] MEDS: FLUoxetine 20 MG Capsule 40 MG PO (09:35)
[2020-04-05] MEDS: buPROPion (XL) 150 MG TABLET.XL PO (09:36)
[2020-04-05] MEDS: Lisinopril 40 MG Tablet PO (09:37)
[2020-04-05 11:45] LABS: Bedside Glucose 122 mg/dL (70-110)
--- NOTE | 2020-04-05 11:47 | DCINST_ITS ---
- Discharge Diagnoses Current Active Problems: Current Active and Chronic Problems CHF exacerbation (Acute) Hypoxia (Acute) CKD (chronic kidney disease), stage III (Chronic) Morbid obesity (Chronic) Anxiety and depression (Chronic) Diabetes mellitus, type II (Chronic) HLD (hyperlipidemia) (Chronic) Former tobacco use (Chronic) Neuropathy (Chronic) HTN (hypertension) (Chronic) You will use the following diet at home:: Calorie/Carbohydrate Controlled (specify 1200, 1400, etc) - 1800 cheryl Your food should be the consistency of: Regular Your liquids should be the consistency of: Regular/Thin Discharge Activity: Return to Normal Activity Weight Bearing Status: Full weight bearing Additional Instructions: Oxygen at 3 liters/min on exertion and when sleeping Arrange for your Bipap as soon as possible Allergies/Adverse Reactions: Allergies latex Allergy (Verified 10/27/14 15:24) Swelling pt states had incidence once when blowing up balloons that face swelled up. Pt unsure if it was latex or the powder oxycodone Allergy (Verified 10/27/14 15:24) Shortness of breath listed as allergy from pcp office-pt unsure if it was the medication or something else Penicillins Allergy (Verified 10/27/14 15:24) Unknown pregabalin [From Lyrica] Allergy (Verified 10/27/14 15:24) Anaphylaxis Medications to take at Discharge Aspirin [Aspirin, Baby] 81 mg PO DAILY@0800 10/27/14 Cholecalciferol (VIT D3) [Vitamin D3] 5,000 unit PO TU 10/27/14 Lisinopril [Zestril] 40 mg PO DAILY 10/27/14 Modafinil [Provigil] 100 mg PO DAILY 10/27/14 traMADol [Ultram] 50 - 100 mg PO Q4H PRN PRN 10/27/14 Allopurinol [Zyloprim] 200 mg PO DAILYCM 04/02/20 Carvedilol [Coreg] 12.5 mg PO BID 04/02/20 Gabapentin 600 mg PO Q4H PRN PRN 04/02/20 Insulin Detemir [Levemir FlexPen] 60 units SC BID 04/02/20 Ropinirole HCl 8 mg PO QHS 04/02/20 buPROPion XL [Wellbutrin Xl] 150 mg PO DAILY 04/02/20 glipiZIDE [Glucotrol] 5 mg PO DAILY@0730 04/02/20 Colchicine 0.6 mg PO PRN PRN 04/03/20 Fluoxetine HCl 40 mg PO DAILY 04/03/20 Oxybutynin Chloride [Oxybutynin Chloride ER] 5 mg PO DAILY 04/03/20 Albuterol IH (ProAir) [Proair Hfa] 2 puff INHALATION UD PRN #1 inhaler 04/05/20 Atorvastatin Calcium [Lipitor] 40 mg PO QHS #30 tab 04/05/20 Bumetanide [Bumex] 1 mg PO BID #1 tablet 04/05/20 Fluticasone/Salmeterol [Advair 500-50 Diskus] 1 puff IH BID #0 04/05/20 Insulin Aspart [Novolog Flexpen] 30 units SC TIDCM #1 04/05/20 The following prescriptions were given: Bumetanide [Bumex] 1 mg PO BID #1 tablet Atorvastatin Calcium [Lipitor] 40 mg PO QHS #30 tab Transmission Status: Pending to [facility] Insulin Aspart [Novolog Flexpen] 30 units SC TIDCM #1 Albuterol IH (ProAir) [Proair Hfa] 2 puff INHALATION UD PRN #1 inhaler PRN Reason: Cough Primary Care Physician: Paige Gu DO [Primary Care Provider] - Please follow up with your Primary Care Physician in: in 7-10 days Test Results: Test results from this visit will be discussed in further detail at your follow- up appointment, if applicable.
--- NOTE | 2020-04-05 12:12 | PCM.DC.SUM ---
Discharge Date and Diagnosis - Problem List Patient Problems: Active and Suspected Problems CHF exacerbation (Acute) Hypoxia (Acute) Date of Admission: 04/03/20 Date of Discharge: 04/05/20 - Primary Discharge Diagnosis Acute Problems: Active Problems #1 acute on chronic diastolic congestive heart failure #2 severe pulmonary hypertension #3 obstructive sleep apnea #4 morbid obesity #5 type 2 diabetes #6 chronic kidney disease stage III secondary to type 2 diabetes #7 chronic obstructive pulmonary disease #8 noncompliance with medical regimen #9 hypoxia secondary to #1 and #7 #10 neuropathy secondary to type 2 diabetes #11 essential hypertension #12 anxiety and depression - Secondary Discharge Diagnosis Chronic Problems: Chronic Problems CKD (chronic kidney disease), stage III (Chronic) Morbid obesity (Chronic) Anxiety and depression (Chronic) Diabetes mellitus, type II (Chronic) HLD (hyperlipidemia) (Chronic) Former tobacco use (Chronic) Neuropathy (Chronic) HTN (hypertension) (Chronic) Diabetes (Chronic) Hospital Course and Treatment Operations: None Procedures: 2-D Echocardiogram Summary of Care Provided: The patient is a 64 year old F was seen in the emergency room at [facility] with chief complaint of shortness of breath, she denied any fevers or chills. Patient stated that she was admitted at [facility] November 2019 for CHF exacerbation in the past. Work-up in the ER included EKG which showed normal sinus rhythm without acute injury, chest x-ray does not show significant effusions there is some mild congestive changes noted, beta natruretic peptide was within normal limits, cardiac enzymes were negative. Patient was felt to have CHF and was admitted to PCU, she was given IV Lasix and her renal function was monitored. She had an echocardiogram performed which showed a normal ejection fraction with severe pulmonary hypertension. I had many conversations with the patient, she was not taking her home inhalers correctly and I stressed that she must use them on a program basis. On 04/05/2020, patient was tested for home oxygen, at rest on room air, her O2 sat was 91%, on ambulation on room air, it was 85%, and ambulation with 3 L of oxygen was 94%. Patient was set up for home O2 and instructed to use it on ambulation at 3 L/min and also when she sleeps at night. She is expected to use portable oxygen within the house and outside the house. Patient was also instructed to follow-up and get her BiPAP, she had been reluctant to pay for the BiPAP due to lack of money, she states that her son has offered to buy her BiPAP for her. She was also instructed to follow-up with a medical technician assistant for further care-I talked with her PCP also and went over the case with her as well as her hospital course. Patient's creatinine was elevated at the time of discharge, I think this was secondary to IV Lasix and she was instructed to get it rechecked when she sees her family physician and I also notified her family physician of this fact. On 04/05/2020, patient was seen and examined: On examination she appeared in good health and spirits, she does not appear to be in any distress. Vital signs as documented. Skin warm and dry and without overt rashes. Neck without JVD, thyroid appears normal, trachea is midline, neck is supple. Lungs clear, decreased breath sounds were noted bilaterally. Heart exam notable for regular rhythm, normal sounds and absence of murmurs, rubs or gallops. Abdomen unremarkable and without evidence of organomegaly, masses, or abdominal aortic enlargement, bowel sounds are present in all 4 quadrants, no abdominal tenderness was noted. Extremities nonedematous, no cyanosis was noted, no clubbing was noted. Neuro: Cranial nerves II through XII are grossly intact, no focal motor deficits were noted, sensation to light touch and pinprick is intact, motor exam 5/5 throughout. Psych: Patient is alert and oriented x3, she does not appear anxious or depressed, she does not appear agitated. On 04/05/2020, patient was seen and examined and felt to be in stable condition for discharge home. Patient Problems: Active and Suspected Problems CHF exacerbation (Acute) Hypoxia (Acute) - Physical Exam Vitals/I&O's: Vital Signs Temp Pulse Resp BP Pulse Ox 98.0 F 81 18 119/41 L 91 04/05/20 09:30 04/05/20 09:30 04/05/20 09:30 04/05/20 09:30 04/05/20 09:58 Oxygen Flow Rate (L/min) [ 3 AMBULATION with Oxygen] Oxygen Flow Rate (L/min) [ 0 AMBULATING on Room Air] Oxygen Flow Rate (L/min) [At 0 REST on Room Air] Oxygen Flow Rate (L/min) 3 Oxygen Delivery Method Room Air Weight: 156 kg Body Mass Index (BMI) 57.6 Intake and Output for Last 24 Hours 04/03/20 04/04/20 04/05/20 23:59 23:59 23:59 Intake Total 1600 / 1600 1220 / 1220 200 / 200 Output Total 2700 / 2700 300 / 300 Balance -1100 / -1100 920 / 920 200 / 200 Microbiology Past 72 Hours 04/04/20 00:55 Sputum, Expectorated/Coughed Gram Stain - Final 04/03/20 03:00 Mucosa - Nasopharyngeal Respiratory Panel (PCR) - Final 04/02/20 22:31 Mucosa - Nasopharyngeal SARS-CoV-2 Antigen (Rapid) - Final Laboratory Results 04/04/20 16:29: POC Glucose 78 04/04/20 21:00: POC Glucose 224 H 04/05/20 01:10: POC Glucose 170 H 04/05/20 06:00: Sodium 139, Potassium 3.9, Chloride 99, Carbon Dioxide 27.0, Anion Gap 13, BUN 87 H, Creatinine 2.34 H, Estim Creat Clear Calc 22.14, Est GFR (MDRD) Af Amer 27 L, Est GFR (MDRD) Non-Af 22 L, BUN/Creatinine Ratio 37.2 H, Glucose 210 H, Calcium 8.6, Magnesium 2.0 04/05/20 07:37: POC Glucose 216 H 04/05/20 11:09: POC Glucose 122 H Current Medications Acetaminophen (Acetaminophen 325 Mg Tablet) 650 mg PO Q6H PRN PRN PRN Reason: Pain Score 1-10/Temp > 100.7 F Albuterol Sulfate (Albuterol 2.5 Mg/3 Ml Vial.Neb.) 2.5 mg INHALATION Q2H PRN PRN PRN Reason: Dyspnea, wheezing Albuterol/Ipratropium (Ipratropium/Albuterol Sulfate 3 Ml Ampul.Neb) 3 ml INHALATION Q4HWA.RT [facility] Last Admin: 04/04/20 11:11 Dose: 3 ml Documented by: Allopurinol (Allopurinol 100 Mg Tablet) 200 mg PO DAILYCM [facility] Last Admin: 04/05/20 07:38 Dose: 200 mg Documented by: Aspirin (Aspirin 81 Mg Tab.Chew) 81 mg PO DAILY@0800 [facility] Last Admin: 04/05/20 07:39 Dose: 81 mg Documented by: Atorvastatin Calcium (Atorvastatin Calcium 40 Mg Tablet) 40 mg PO QHS [facility] Last Admin: 04/04/20 21:03 Dose: 40 mg Documented by: Budesonide (Budesonide Respules 0.5 Mg/2 Ml Ampul.Neb.) 0.5 mg INHALATION BID.RT [facility] Last Admin: 04/04/20 06:57 Dose: 0.5 mg Documented by: Bupropion HCl (Bupropion (Xl) 150 Mg Tablet.Xl) 150 mg PO DAILY [facility] Last Admin: 04/05/20 09:36 Dose: 150 mg Documented by: Carvedilol (Carvedilol 12.5 Mg Tablet) 12.5 mg PO BID [facility] Last Admin: 04/05/20 09:34 Dose: 12.5 mg Documented by: Cholecalciferol (Cholecalciferol (Vit D3) 1,000 Unit (25mcg)) 1,000 unit PO DAILY [facility] Last Admin: 04/05/20 09:34 Dose: 1,000 unit Documented by: Enoxaparin Sodium (Enoxaparin 40 Mg/0.4 Ml Syringe) 40 mg SC DAILY [facility] Last Admin: 04/05/20 09:34 Dose: 40 mg Documented by: Fluoxetine HCl (Fluoxetine 20 Mg Capsule) 40 mg PO DAILY [facility] Last Admin: 04/05/20 09:35 Dose: 40 mg Documented by: Gabapentin (Gabapentin 400 Mg Capsule) 400 mg PO TIDCM [facility] Last Admin: 04/05/20 11:15 Dose: 400 mg Documented by: Guaifenesin (Guaifenesin 10 Ml Udc (200mg/10ml)) 20 ml PO Q4H PRN PRN PRN Reason: COUGH Sodium Chloride () 250 mls @ 15 mls/hr IV .[id number] PRN PRN Reason: Saline Flush Sodium Chloride () 250 mls @ 15 mls/hr IV .[id number] PRN PRN Reason: Additional IVPB Infusion Insulin Glargine (Insulin Glargine 100 Units/Ml Pen) 60 units SC BID [facility] Last Admin: 04/05/20 09:37 Dose: 60 units Documented by: Insulin Human Lispro (Insulin Lispro 100 Unit/Ml Insuln.Pen) 40 unit SC TIDCM [facility] Last Admin: 04/05/20 11:14 Dose: Not Given Documented by: Insulin Human Lispro (Insulin Lispro 100 Unit/Ml Insuln.Pen) 0 unit SC [facility]; Protocol Last Admin: 04/05/20 11:11 Dose: Not Given Documented by: Lisinopril (Lisinopril 40 Mg Tablet) 40 mg PO DAILY [facility] Last Admin: 04/05/20 09:37 Dose: 40 mg Documented by: Melatonin (Melatonin 3 Mg Tablet) 3 mg PO QHS PRN PRN PRN Reason: INSOMNIA Ondansetron HCl (Ondansetron 4 Mg/2 Ml Vial) 4 mg IV Q8H PRN PRN PRN Reason: NAUSEA/VOMITING Pramipexole Dihydrochloride (Pramipexole Di-Hcl 1 Mg Tablet) 1.5 mg PO QHS [facility] Last Admin: 04/04/20 21:03 Dose: 1.5 mg Documented by: Senna/Docusate Sodium (Senna/Docusate Sodium 1 Tablet) 2 tablet PO BID PRN PRN PRN Reason: Constipation Sodium Chloride (0.9% Saline Lock 10 Ml Syringe) 10 - 40 ml IV UD PRN PRN Reason: SALINE FLUSH Last Admin: 04/05/20 09:35 Dose: 10 ml Documented by: Tolterodine Tartrate (Tolterodine Tartrate 2 Mg Cap.Sa) 2 mg PO DAILY [facility] Last Admin: 04/05/20 09:35 Dose: 2 mg Documented by: Tramadol HCl (Tramadol 50 Mg Tablet) 50 - 100 mg PO Q4H PRN PRN PRN Reason: pain 6-10/10 Discharge Activity: Return to Normal Activity Weight Bearing Status: Full weight bearing Home Medications: Medications to take at Discharge Aspirin [Aspirin, Baby] 81 mg PO DAILY@0800 10/27/14 Cholecalciferol (VIT D3) [Vitamin D3] 5,000 unit PO TU 10/27/14 Lisinopril [Zestril] 40 mg PO DAILY 10/27/14 Modafinil [Provigil] 100 mg PO DAILY 10/27/14 traMADol [Ultram] 50 - 100 mg PO Q4H PRN PRN 10/27/14 Allopurinol [Zyloprim] 200 mg PO DAILYCM 04/02/20 Carvedilol [Coreg] 12.5 mg PO BID 04/02/20 Gabapentin 600 mg PO Q4H PRN PRN 04/02/20 Insulin Detemir [Levemir FlexPen] 60 units SC BID 04/02/20 Ropinirole HCl 8 mg PO QHS 04/02/20 buPROPion XL [Wellbutrin Xl] 150 mg PO DAILY 04/02/20 glipiZIDE [Glucotrol] 5 mg PO DAILY@0730 04/02/20 Colchicine 0.6 mg PO PRN PRN 04/03/20 Fluoxetine HCl 40 mg PO DAILY 04/03/20 Oxybutynin Chloride [Oxybutynin Chloride ER] 5 mg PO DAILY 04/03/20 Albuterol IH (ProAir) [Proair Hfa] 2 puff INHALATION UD PRN #1 inhaler 04/05/20 Atorvastatin Calcium [Lipitor] 40 mg PO QHS #30 tab 04/05/20 Bumetanide [Bumex] 1 mg PO BID #1 tab 04/05/20 Fluticasone/Salmeterol [Advair 500-50 Diskus] 1 puff IH BID #0 04/05/20 Insulin Aspart [Novolog Flexpen] 30 units SC TIDCM #1 04/05/20 Following Prescriptions Were Given to Patient: Bumetanide [Bumex] 1 mg PO BID #1 tab Atorvastatin Calcium [Lipitor] 40 mg PO QHS #30 tab Transmission Status: Received by [employer] [facility] Insulin Aspart [Novolog Flexpen] 30 units SC TIDCM #1 Albuterol IH (ProAir) [Proair Hfa] 2 puff INHALATION UD PRN #1 inhaler PRN Reason: Cough Primary Care Physician: Paige Gu DO [Primary Care Provider] - Please follow up with your Primary Care Physician in: in 7-10 days Disposition: Home Minutes spent on discharge:: 33 Patient Condition:: Stable Medical Necessity - Tobacco Use Smoking Status: Former smoker Tobacco Use: Non-smoker Meaningful Use Info Meaningful Use Diagnoses (Choose all that apply): CHF - CHF AMY/ARB ordered at discharge?: Yes Documented LVEF (%): 70 Inpatient E&M: [id number] Disch Hosp
--- NOTE | 2020-04-06 15:00 | CASEMGMT ---
DEREK IYER Discharge F/U Phone Call LACE: 10 Strata:3 Discharge date: 04/05/20 Call date: 04/06/20 Call time: [phone] Attempted to reach pt without success at this time, message left for pt to call this DEREK IYER back if/when able. Pt did qualifly for 3L w/ exertion and per [employer], they did set her up with concentrator and portable tanks. [place] DEREK IYER Admission dx: CHF exac, COPD exac, hypoxia
== END 2020-04-05 16:00 | disposition home or self-care (01) | DRG 291 ==
LOC: ED 22:40 → PCU 04-03 00:23
PROVIDERS: Admitting Provider Family Medicine; Emergency Provider Emergency Medicine; PCP Family Medicine; Visit Provider Internal Medicine
DX: I13.0 Hypertensive heart and chronic kidney disease with heart failure and stage 1 through stage 4 chronic kidney disease, or unspecified chronic kidney disease (principal); I50.33 Acute on chronic diastolic (congestive) heart failure; J44.1 Chronic obstructive pulmonary disease with (acute) exacerbation; Z68.43 Body mass index [BMI] 50.0-59.9, adult; N18.30 Chronic kidney disease, stage 3 unspecified; E11.40 Type 2 diabetes mellitus with diabetic neuropathy, unspecified; E11.22 Type 2 diabetes mellitus with diabetic chronic kidney disease; G47.33 Obstructive sleep apnea (adult) (pediatric); I27.20 Pulmonary hypertension, unspecified; E66.01 Morbid (severe) obesity due to excess calories; Z91.19 Patient's noncompliance with other medical treatment and regimen; F41.9 Anxiety disorder, unspecified; F32.9 Major depressive disorder, single episode, unspecified; E78.5 Hyperlipidemia, unspecified; Z87.891 Personal history of nicotine dependence; R09.02 Hypoxemia; T50.1X5A Adverse effect of loop [high-ceiling] diuretics, initial encounter
CPT/HCPCS: 36415; 36600; 71045; 80048; 80053; 80061; 82803; 82962; 83735; 83880; 84145; 84484; 85025; 87070; 87205; 87426; 87633; 93005; 93306; 94002; 94640; 97802; 99251; 99285; 99406; Q9957; A4216; C8929; G0463; J1940

== ENCOUNTER → 2020-05-13 10:28 | Outpatient (CLI) | payer OTHER, SELFPAY ==
[2020-04-22 11:13] VITALS: BMI 57.2
--- NOTE | 2020-05-14 10:42 | PFT ---
INTRODUCTION: The patient is a 64-year-old female that presents for pulmonary function studies secondary to a diagnosis of chronic respiratory failure. Respiratory therapy reports good patient effort. Bronchodilators were used during testing. INTERPRETATION: Forced expiration spirometry demonstrates no evidence of a large airways obstructive ventilatory defect. There was a partial, albeit technically nonsignificant, response to aerosolized bronchodilators. Spirograms are of good quality and plateau normally. Body plethysmography was performed and revealed a decreased TLC to 3.88 L, 76% of predicted, indicative of a mild restrictive ventilatory impairment. Diffusing capacity by single breath CO is significantly reduced at 37% of predicted. IMPRESSION: Mild restrictive ventilatory defect with disproportionate reduction in diffusing capacity.
== END ==
PROVIDERS: PCP Family Medicine; Referring Provider Internal Medicine Critical Care Medicine; Visit Provider Internal Medicine Critical Care Medicine
DX: J96.11 Chronic respiratory failure with hypoxia (principal)
CPT/HCPCS: 94060; 94726; 94729

== ENCOUNTER 2020-06-23 07:45 | Inpatient (IN) | payer OTHER, SELFPAY ==
[2020-06-10 11:16] VITALS: BMI 59.3
[2020-06-23] VITALS (13 sets, daily range): BP systolic 99–149; BP diastolic 49–98; PULSE 73–86; RESP 16–26; TEMP 36.4–37.1; O2SAT 90–96; BMI 64.2; BMI 62.8
--- NOTE | 2020-06-23 07:50 | EKG12_ITS ---
Test Reason : SOB Blood Pressure : / mmHG Vent. Rate : 081 BPM Atrial Rate : 081 BPM P-R Int : 156 ms QRS Dur : 102 ms QT Int : 392 ms P-R-T Axes : 051 060 054 degrees QTc Int : 455 ms Normal sinus rhythm Normal ECG Confirmed by EMANUEL MACKAY, SANTOS ([id number]), content editor SHEA GU ([id number]) on 06/26/2020 11:27:37 A M Referred By: JUSTIN Confirmed By:GRECIA CASTELLANOS MD
--- NOTE | 2020-06-23 08:02 | EX.ED.DYSGE1 ---
HPI History of Present Illness Chief Complaint: Shortness of Breath Detail of Chief Complaint: The patient presents complaining of shortness of breath since November she h Narrative Narrative: The patient presents complaining of shortness of breath it has been going on since November she has been admitted to multiple hospitals most recently [facility] in March she was found to have congestive heart failure in addition to her chronic COPD, she was on Lasix that did not help it affected her kidney she was then put on Bumex, she saw cardiology Dr. Reynoso's office 2 weeks ago her medications were changed Bumex was maintained since that time has had decreased urine output, she apparently contacted the office she is scheduled to have outpatient lab test done today, she had progressively worsening shortness of breath despite her use of 3 to 4 L of home O2 and she came to the emergency department. She believes she has gained 20 pounds in the last 2 weeks, she has no known history of NE PE no kidney or liver problems no GI problems her only chief complaint is congestive heart failure shortness of breath and COPD PFSH PFSH Medical History Anxiety and depression Chronic diastolic (congestive) heart failure Chronic respiratory failure with hypoxia CKD (chronic kidney disease), stage III COPD exacerbation Diabetes mellitus, type II Essential (primary) hypertension Former tobacco use HLD (hyperlipidemia) Hypoxia Morbid obesity Neuropathy Secondary pulmonary arterial hypertension Sleep apnea 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, with long-term current use of insulin Home Medications aspirin 81 mg PO DAILY@0800 10/27/14 [History Last Taken 10/26/14] cholecalciferol (vitamin D3) 5,000 unit PO TU 10/27/14 [History Last Taken 10/26/14] Gabapentin 600 mg PO Q4H PRN PRN 04/02/20 [History Last Taken Unknown] allopurinol 200 mg PO DAILYCM 04/02/20 [History Last Taken Unknown] bupropion HCl 150 mg PO DAILY 04/02/20 [History Last Taken Unknown] carvedilol 12.5 mg PO BID 04/02/20 [History Last Taken Unknown] glipizide 5 mg PO DAILY@0730 04/02/20 [History Last Taken Unknown] insulin detemir U-100 60 units SC BID 04/02/20 [History Last Taken Unknown] ropinirole 8 mg PO QHS 04/02/20 [History Last Taken Unknown] Fluoxetine HCl 40 mg PO DAILY 04/03/20 [History Last Taken Unknown] colchicine 0.6 mg PO PRN PRN 04/03/20 [History Last Taken Unknown] oxybutynin chloride 5 mg PO DAILY 04/03/20 [History Last Taken Unknown] albuterol sulfate 2 puff INHALATION UD PRN #1 inhaler 04/05/20 [Rx Last Taken Unknown] atorvastatin 40 mg PO QHS #30 tab 04/05/20 [Rx Last Taken Unknown] fluticasone propion-salmeterol 1 puff IH BID #0 04/05/20 [Rx Last Taken Unknown] insulin aspart U-100 30 units SC TIDCM #1 04/05/20 [Rx Last Taken Unknown] amlodipine 10 mg tablet 10 mg PO DAILY 04/22/20 [History Last Taken Unknown] triamcinolone acetonide 0.1 % dental paste 1 applic DENTAL BID 04/22/20 [History Last Taken Unknown] bumetanide 2 mg tablet 2 mg PO DAILY #90 tab 06/10/20 [Rx Last Taken Unknown] spironolactone 25 mg tablet 25 mg PO DAILY #90 tab 06/17/20 [Rx Last Taken Unknown] Allergy/AdvReac Type Severity Reaction Status Date / Time latex Allergy Swelling Verified 06/23/20 07:50 oxycodone Allergy Shortness Verified 06/23/20 07:50 of breath Penicillins Allergy Unknown Verified 06/23/20 07:50 pregabalin [From Lyrica] Allergy Anaphylaxis Verified 06/23/20 07:50 Family History Mother Diabetes Cancer Colon Father Diabetes CVA (cerebral vascular accident) Surgical History Amputation toe H/O: hysterectomy Social History Smoking Status: Former smoker quit date: 02/07/04 ROS ROS ED Constitutional Constitutional ED: Reports subjective, sweats and other; Denies chills, fever(s) or weight loss Eyes Eyes: Denies blurry vision or change in vision ENT ENT ED: Denies ear pain Cardiovascular Cardiovascular: Denies chest pain or palpitations Respiratory/Chest Respiratory/Chest: Reports dyspnea and dyspnea on exertion; Denies cough Gastrointestinal Gastrointestinal: Denies abdominal pain, nausea or vomiting Genitourinary Genitourinary ED: Denies dysuria or hematuria Musculoskeletal Musculoskeletal: Denies arthralgias or myalgias Integumentary Reports rash; Denies abscess Neurologic Neurologic: Denies weakness Psychiatric Psychiatric: Denies anxiety or depression Endocrine Endocrinology: Denies polydipsia or polyuria Allergic/Immunologic Allergic/Immunologic ED: Denies urticaria EXAM Physical Exam Narrative Exam Narrative: Vital signs are unremarkable on 4 L of oxygen her pulse ox is about 88% normally she states about 93% she is feeling better resting in the bed she is a very large woman, HEENT exam is unremarkable her lungs are diminished the heart tones are distant the abdomen is rather obese she feels if she is retaining fluid her moving all 4 extremities she has 4+ edema to her lower extremities it is worse than her baseline neurologically awake and alert moving all 4 Const Vital Signs: 06/23/20 07:46 06/23/20 08:12 06/23/20 08:52 Temperature 97.9 F Temperature Source Temporal Pulse Rate 77 83 Respiratory Rate 26 H 16 Respiratory Effort Short of Breath Pursed Lip Respiratory Depth Shallow Respiratory Pattern Tachypnea Blood Pressure 126/65 H Blood Pressure Mean 85 Pulse Ox 90 94 Oxygen Delivery Method Nasal Cannula Nasal Cannula Oxygen Flow Rate (L/min) 3 4 06/23/20 09:01 Temperature Temperature Source Pulse Rate 85 Respiratory Rate 18 Respiratory Effort Respiratory Depth Respiratory Pattern Blood Pressure 148/98 H Blood Pressure Mean 114 Pulse Ox 94 Oxygen Delivery Method Nasal Cannula Oxygen Flow Rate (L/min) 4 MDM MDM MDM Narrative Medical decision making narrative: Given all of her complaints ED evaluation will be obtained EKG shows, sinus rhythm rate of about of about 80 no acute injury 1 view chest x-ray shows to my review chronic changes nothing acute radiology generally concurs Patient's ED screening labs are generally unremarkable except her creatinine is elevated now to about 2.7 about 2.4 in the past, I spoke with the hospitalist they have asked that I give her Lasix 40 mg IV will arrange for admission for further management of all the above Disposition is admit Final impression acute recurrent congestive heart failure, dyspnea on exertion, COPD requiring 3 L home O2 Lab Data Labs: Laboratory Results - last 24 hr 06/23/20 06/23/20 06/23/20 08:05 08:05 08:05 WBC 9.5 RBC 3.85 L Hgb 11.7 L Hct 36.7 L MCV 95.3 MCH 30.4 MCHC 31.9 L RDW Std Deviation 45.8 H RDW Coeff of Varun 13.3 Plt Count 203 MPV 9.4 Immature Gran % (Auto) 0.400 Neut % (Auto) 77.2 H Lymph % (Auto) 14.1 L [place] % (Auto) 4.2 Eos % (Auto) 3.8 Baso % (Auto) 0.3 Absolute Neuts (auto) 7.3 Absolute Lymphs (auto) 1.34 Nucleated RBC % 0 Sodium 133 L Potassium 5.4 H Chloride 100 Carbon Dioxide 30.0 Anion Gap 3 L BUN 91 H Creatinine 2.70 H Estim Creat Clear Calc 18.42 Est GFR (MDRD) Af Amer 23 L Est GFR (MDRD) Non-Af 19 L BUN/Creatinine Ratio 33.7 H Glucose 214 H Calcium 8.6 Troponin I 0.018 B-Natriuretic Peptide 16.4 Radiography Diagnostic Testing: Radiology Impression Chest X-Ray 06/23/20 08:11 IMPRESSION: Chronic interstitial changes, no superimposed acute pulmonary process Electronically Signed: Junaid Fernandez MD at 8:55 EDT , Service support , Discharge Plan Triage Chief Complaint: Shortness of Breath ED Provider: Karla Plunkett Dx/Rx/DC Orders Prescriptions: No Action triamcinolone acetonide 0.1 % paste 1 applic DENTAL BID RF: 0 amlodipine 10 mg tablet 10 mg PO DAILY RF: 0 bumetanide 2 mg tablet 2 mg PO DAILY Qty: 90 RF: 3 aspirin 81 MG tablet,chewable 81 mg PO DAILY@0800 RF: 0 cholecalciferol (vitamin D3) 1,000 UNIT tablet 5,000 unit PO TU RF: 0 insulin detemir U-100 100 UNITS/ML insulin pen 60 units SC BID RF: 0 Gabapentin 600 MG tablet 600 mg PO Q4H PRN PRN (Reason: Pain Score 1-10) RF: 0 carvedilol 6.25 MG tablet 12.5 mg PO BID RF: 0 allopurinol 100 MG tablet 200 mg PO DAILYCM RF: 0 glipizide 5 MG tablet 5 mg PO DAILY@0730 RF: 0 ropinirole 4 MG tablet 8 mg PO QHS RF: 0 bupropion HCl 150 MG tablet extended release 24 hr 150 mg PO DAILY RF: 0 Fluoxetine HCl 40 mg PO DAILY RF: 0 oxybutynin chloride 5 MG tablet extended release 24hr 5 mg PO DAILY RF: 0 colchicine 0.6 MG tablet 0.6 mg PO PRN PRN (Reason: gout) RF: 0 atorvastatin 40 MG tablet 40 mg PO QHS Qty: 30 RF: 0 fluticasone propion-salmeterol 1 EACH blister with device 1 puff IH BID Qty: 0 RF: 0 albuterol sulfate 1 PUFF inhaler 2 puff INHALATION UD PRN (Reason: Cough) Qty: 1 RF: 0 insulin aspart U-100 100 UNITS/ML insulin pen 30 units SC TIDCM Qty: 1 RF: 0 spironolactone 25 mg tablet 25 mg PO DAILY Qty: 90 RF: 3 Primary Care Provider: Paige Gu
--- NOTE | 2020-06-23 08:11 | RAD_ITS ---
STUDY: X-RAY CHEST REASON FOR EXAM: Female, 64 years old. Worsening shortness of breath TECHNIQUE: Single AP portable view of the chest. COMPARISON: 04/02/20 FINDINGS: EKG leads overlie the chest. Stable elevation of right hemidiaphragm There are interstitial changes of the lungs. There is no demonstrated pleural abnormality. Normal size heart. Normal mediastinum and vikash. Normal visualized pulmonary arteries. Normal visualized aortic arch and descending thoracic aorta. Normal visualized thoracic spine. Normal visualized ribs, clavicles, and shoulders. There is no demonstrated abnormality of the visualized soft tissue structures of the upper abdomen. RAD/Chest 1 View (Portable) IMPRESSION: Chronic interstitial changes, no superimposed acute pulmonary process Electronically Signed: Junaid Fernandez MD at 8:55 EDT , Service support ,
[2020-06-23 08:14] LABS: Absolute Lymphocyte Count 1.34 X10^3/uL (0.83-4.51); Absolute Neutrophil Count 7.3 X10^3/uL (2.0-7.7); Basophil# 0.03 X10^3/uL; Basophil% 0.3 % (0-1); Eosinophil# 0.36 X10^3/uL; Eosinophils% 3.8 % (0-5); Hematocrit 36.7 % (37-47); Hemoglobin 11.7 g/dL (12.0-15.0); Lymphocyte # 1.34 X10^3/ul (0.83-4.51); Lymphocyte % 14.1 % (19-41); Mean Corp Hgb Conc 31.9 g/dL (32-36); Mean Corpuscular Hgb 30.4 pg (27.0-32.0); Mean Corpuscular Volume 95.3 fL (81-99); Mean Platelet Vol. 9.4 fl (6.2-12.0); Monocyte% 4.2 % (0-10); NRBC Flagged by Analyzer 0 % (0-5); Neutrophil # 7.34 X10^3/uL (2.7-7.7); Neutrophil % 77.2 % (47-70); Platelet Count 203 K/mm3 (150-450); RBC Distribution Width CV 13.3 % (11.6-14.6); RBC Distribution Width SD 45.8 fl (35.1-43.9); Red Blood Count 3.85 M/mm3 (4.2-5.4); White Blood Count 9.5 K/mm3 (4.4-11.0)
[2020-06-23 08:36] LABS: Anion Gap 3 (5-15); BUN 91 mg/dL (7-18); BUN/Creat Ratio 33.7 RATIO (10-20); Calcium,Total 8.6 mg/dL (8.5-10.1); Chloride 100 mmol/L (98-107); EST Glomerular Filtration Rate 19 mL/min (>60); Est Glom Filt Rate - Afr Amer 23 mL/min (>60); Estimated Creatinine Clearance 18.42 ml/min; Glucose 214 mg/dL (74-106); Potassium 5.4 mmol/L (3.5-5.1); Sodium Level 133 mmol/L (136-145)
[2020-06-23 09:10] LABS: BNP,B-Type NATRIURETIC PEPTIDE 16.4 pg/mL (0-100)
[2020-06-23] MEDS: Furosemide 40 MG/4 ML Vial IV (10:00)
[2020-06-23 12:35] LABS: Bedside Glucose 232 mg/dL (70-110)
--- NOTE | 2020-06-23 13:04 | PCM.HP.STD ---
[facility] - General General Date of Admission: 06/23/20 HPI Narrative KENDALL BUTLER, is a 64 F who presents to the ER with complaint of progressive worsening of shortness of breath since November 2019, dyspnea at rest and probably resistant to oral Lasix and Bumex with decreasing urine output and generalized swelling and edema. She gained 20 pounds in last 4 months. Patient oxygen requirement also went up 4 L from baseline 3 L. She is joshua on 06/10/2020 when spironolactone was added. Patient also has pulmonary hypertension. She recently had an echo in March 29 showed EF 70%, LA mildly enlarged, mild MR, RVSP 56 mg consistent with severe pulmonary hypertension. Chest x-ray immediately reviewed shows chronic interstitial changes. EKG shows sinus rhythm at 81 bpm, QTC 455 ms. [facility], LATER [facility] Medical History (Updated 06/23/20 @ 13:[address] Talha Chambrelain MD) Anxiety Anxiety and depression Chronic diastolic (congestive) heart failure Chronic pain Chronic respiratory failure with hypoxia CKD (chronic kidney disease), stage III COPD (chronic obstructive pulmonary disease) COPD exacerbation Depression Diabetes Diabetes mellitus, type II Essential (primary) hypertension Former smoker Former tobacco use HLD (hyperlipidemia) Hypoxia Morbid obesity Neuropathy On home oxygen therapy Secondary pulmonary arterial hypertension Sleep apnea Sleep apnea 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, with long-term current use of insulin Home Medications aspirin 81 mg PO DAILY@0800 10/27/14 [History Last Taken 06/22/20 08:00] cholecalciferol (vitamin D3) 5,000 unit PO TU 10/27/14 [History Last Taken 06/16/20] Gabapentin 600 mg PO Q4H PRN PRN 04/02/20 [History Last Taken Unknown] allopurinol 200 mg PO DAILYCM 04/02/20 [History Last Taken 06/22/20 08:00] bupropion HCl 150 mg PO DAILY 04/02/20 [History Last Taken 06/22/20 08:00] carvedilol 12.5 mg PO BID 04/02/20 [History Last Taken 06/22/20 22:00] insulin detemir U-100 60 units SC BID 04/02/20 [History Last Taken 06/22/20 20:00] ropinirole 8 mg PO QHS 04/02/20 [History Last Taken 06/22/20 22:00] Fluoxetine HCl 80 mg PO DAILY 04/03/20 [History Last Taken 06/22/20 08:00] colchicine 0.6 mg PO PRN PRN 04/03/20 [History Last Taken Unknown] oxybutynin chloride 5 mg PO DAILY 04/03/20 [History Last Taken 06/22/20 08:00] albuterol sulfate 2 puff INHALATION UD PRN #1 inhaler 04/05/20 [Rx Last Taken Unknown] amlodipine 10 mg tablet 10 mg PO DAILY 04/22/20 [History Last Taken 06/22/20 08:00] triamcinolone acetonide 0.1 % dental paste 1 applic DENTAL BID 04/22/20 [History Last Taken Unknown] bumetanide 2 mg tablet 2 mg PO DAILY #90 tab 06/10/20 [Rx Last Taken 06/22/20 08:00] atorvastatin 40 mg PO QHS 06/23/20 [History Last Taken 06/22/20 22:00] glipizide 5 mg PO DAILY 06/23/20 [History Last Taken 06/22/20 08:00] insulin aspart U-100 40 units SC TIDCM 06/23/20 [History Last Taken 06/22/20 17:00] spironolactone 25 mg PO DAILY 06/23/20 [History Last Taken 06/22/20 08:00] Allergy/AdvReac Type Severity Reaction Status Date / Time latex Allergy Swelling Verified 06/23/20 07:50 oxycodone Allergy Shortness Verified 06/23/20 07:50 of breath Penicillins Allergy Unknown Verified 06/23/20 07:50 pregabalin [From Lyrica] Allergy Anaphylaxis Verified 06/23/20 07:50 Family History Mother Diabetes Cancer Colon Father Diabetes CVA (cerebral vascular accident) Surgical History Amputation toe H/O: hysterectomy History of appendectomy History of cholecystectomy Social History (Updated 06/23/20 @ 11:22 by Daly Mckeon) household members: spouse housing: house number of children: 2 financial difficulty paying for basics: not applicable service: No current occupational status: disabled current occupational exposures/hazards: No pets and animals: Yes (dog) leisure activities: other Smoking Status: Former smoker quit date: 02/07/04 ROS ROS Narrative Constitutional: Reports fatigue and weakness. Morbid obesity HEENT: Reports systems reviewed and no addt'l complaints, except as documented Respiratory/Chest: Dyspnea at rest, on oxygen. Gastrointestinal: Denies coffee ground emesis, hematemesis or vomiting Genitourinary: Decreased urine output denies burning urination. Musculoskeletal: Limited ambulation reports joint pain and limited range of motion Neurologic: Denies seizure-like activity Endocrinology: Diabetes mellitus. Reports systems reviewed and no addt'l complaints, except as documented Hematologic/Lymphatic: Bilateral lymphedema. Reports systems reviewed and no addt'l complaints, except as documented Rest 12 ROS are negative except as mentioned in HPI Vital Signs Vital Signs Vital Signs: 06/23/20 07:46 06/23/20 08:12 06/23/20 08:52 Temperature 97.9 F Temperature Source Temporal Pulse Rate 77 83 Respiratory Rate 26 H 16 Respiratory Effort Short of Breath Pursed Lip Respiratory Depth Shallow Respiratory Pattern Tachypnea Blood Pressure 126/65 H Blood Pressure Mean 85 Blood Pressure Source Blood Pressure Position Blood Pressure Location Pulse Ox 90 94 Oxygen Delivery Method Nasal Cannula Nasal Cannula Oxygen Flow Rate (L/min) 3 4 06/23/20 09:01 06/23/20 10:03 06/23/20 11:23 Temperature 97.5 F L 97.8 F Temperature Source Oral Oral Pulse Rate 85 73 81 Respiratory Rate 18 16 18 Respiratory Effort Respiratory Depth Respiratory Pattern Blood Pressure 148/98 H 99/56 L 124/49 H Blood Pressure Mean 114 70 74 Blood Pressure Source Monitor Blood Pressure Position Semi-Fowlers Blood Pressure Location Left Forearm Pulse Ox 94 96 94 Oxygen Delivery Method Nasal Cannula Room Air Nasal Cannula Oxygen Flow Rate (L/min) 4 3 06/23/20 11:27 06/23/20 11:28 Temperature Temperature Source Pulse Rate 78 Respiratory Rate Respiratory Effort Non-Labored Respiratory Depth Deep Respiratory Pattern Blood Pressure Blood Pressure Mean Blood Pressure Source Blood Pressure Position Blood Pressure Location Pulse Ox Oxygen Delivery Method Nasal Cannula Oxygen Flow Rate (L/min) 3 Physical Exam Narrative General: Alert, Oriented x3, Cooperative HEENT: Atraumatic, PERRLA, EOMI, Normocephalic Oral: No Gingival or Mucosal Lesions/ Ulcerations Neck: Supple, No JVD, Negative Carotid Bruits Lungs: Air entry diminished in bilateral lung bases. No crepitations. Mild expiratory rhonchi. Cardiovascular: Regular rate, Regular Rhythm, Normal S1, Normal S2, No murmurs Abdomen: Bowel Sounds Present, Soft, Non Tender, mild ventral hernia. Abdominal distention/ascites : Decreased urine output. No renal angle tenderness. No suprapubic tenderness. Extremities: Bilateral lower extremity edema, Capillary Refill Less than 3 Seconds Skin: No rashes, No breakdown Musculoskeletal: ROM restricted. Diffuse degenerative arthritis of lower extremity. Neurological: Cranial nerves II-XII grossly intact, Deep Tendon Reflexes 2+/4 Psych/Mental Status: Normal Affect, Appropriate. Lab / Micro Data Result Diagrams: 06/23/20 08:05 06/23/20 08:05 Labs: Laboratory Results - last 24 hr 06/23/20 06/23/20 06/23/20 08:05 08:05 08:05 WBC 9.5 RBC 3.85 L Hgb 11.7 L Hct 36.7 L MCV 95.3 MCH 30.4 MCHC 31.9 L RDW Std Deviation 45.8 H RDW Coeff of Varun 13.3 Plt Count 203 MPV 9.4 Immature Gran % (Auto) 0.400 Neut % (Auto) 77.2 H Lymph % (Auto) 14.1 L [place] % (Auto) 4.2 Eos % (Auto) 3.8 Baso % (Auto) 0.3 Absolute Neuts (auto) 7.3 Absolute Lymphs (auto) 1.34 Nucleated RBC % 0 Sodium 133 L Potassium 5.4 H Chloride 100 Carbon Dioxide 30.0 Anion Gap 3 L BUN 91 H Creatinine 2.70 H Estim Creat Clear Calc 18.42 Est GFR (MDRD) Af Amer 23 L Est GFR (MDRD) Non-Af 19 L BUN/Creatinine Ratio 33.7 H Glucose 214 H Calcium 8.6 Troponin I 0.018 B-Natriuretic Peptide 16.4 POC Glucose 06/23/20 11:37 WBC RBC Hgb Hct MCV MCH MCHC RDW Std Deviation RDW Coeff of Varun Plt Count MPV Immature Gran % (Auto) Neut % (Auto) Lymph % (Auto) [place] % (Auto) Eos % (Auto) Baso % (Auto) Absolute Neuts (auto) Absolute Lymphs (auto) Nucleated RBC % Sodium Potassium Chloride Carbon Dioxide Anion Gap BUN Creatinine Estim Creat Clear Calc Est GFR (MDRD) Af Amer Est GFR (MDRD) Non-Af BUN/Creatinine Ratio Glucose Calcium Troponin I B-Natriuretic Peptide POC Glucose 232 H Radiology Impression Chest X-Ray 06/23/20 08:11 IMPRESSION: Chronic interstitial changes, no superimposed acute pulmonary process Electronically Signed: Junaid Fernandez MD at 8:55 EDT , Service support , Assessment & Plan Assessment/Plan (1) Secondary pulmonary arterial hypertension: (2) Essential (primary) hypertension: (3) Acute on chronic diastolic (congestive) heart failure: PLAN: KENDALL BUTLER, is a 64 F who presents to the ER with progressive worsening shortness of breath since November 2019, dyspnea at rest, anasarca. Chest x-ray immediately reviewed shows chronic interstitial changes with underventilated image. EKG shows sinus rhythm at 81 bpm, QTC 455 ms. 1. Acute on chronic diastolic heart failure, severe pulmonary hypertension with chronic hypoxic respiratory failure: Patient is being admitted in PCU. Lasix 40 mg IV in ED and started on Lasix drip. Metolazone 5 mg daily. BNP 16.4 but may be falsely negative as patient is morbidly obese. She recently had an echo in March 29 showed EF 70%, LA mildly enlarged, mild MR, RVSP 56 mg consistent with severe pulmonary hypertension. Heart failure core measures including intake and output, fluid restriction less than 1500 mL, daily weight monitoring, kidney and electrolytes monitoring. Continue patient's Coreg and atorvastatin. Serial troponin enzymes, TSH and fasting profile tomorrow a.m. 2. Acute kidney injury on CKD stage IIIb secondary to diuretic, diabetic nephropathy: Burr Grinder has been consulted for progression of kidney disease. Diuretic management. Hold spironolactone as potassium is elevated. 3 restrictive lung disease, obstructive sleep apnea: Patient had recent PFT in May 27 showed mild restrictive ventilatory defect with an disproportionate reduction in diffusing capacity, 37%. Decreased TLC 76% of predicted. Continue BiPAP. 4. Diabetes mellitus type 2, complicated with diabetic nephropathy and neuropathy: 5. Hypertension, anxiety and depression: Currently blood pressure is normal range. Home medication reconciliation done. Living will/advanced directive/end of life care: Patient does have living will or advanced directive. Her is power of employment law attorney for health. After discussion of benefits/risks procedures involved with full code, DNR CC arrest and DNR CC, the patient opted for DNR-CC Arrest with no intubation. Patient does not want hemodialysis. Patient does not want artificial life support including intubation, tube feed, ventilator and/chest compression, central venous catheter, vasopressor and DC shock if needed Total time spent in [id number] encounter in discussion of advanced directive 16 minutes. VTE prophylaxis: Heparin 500 subcutaneous. Visit Charges Inpatient E&M: 81415 Init Hosp L3 Procedures Hospitalists Procedures: 51262 Advncd Care Plan 30 Min
[2020-06-23 13:38] LABS: Magnesium 2.3 mg/dL (1.6-2.6)
[2020-06-23] MEDS: Furosemide 500 MG in Empty Viaflex 50 mL 1 EACH CONT INF (13:56)
--- NOTE | 2020-06-23 14:16 | CON.PCM.RE_ITS ---
Assessment & Plan Assessment/Plan (1) MARCELA (acute kidney injury): PLAN: Likely cardiorenal syndrome superimposed on CKD Baseline seems to be in the 1.4-2.3 range Avoid overdiuresis Recommend to repeat another echocardiogram Hold spironolactone Check postvoid residual renal ultrasound UA fractional excretion of urea if available Avoid nephrotoxins (2) Acute on chronic diastolic (congestive) heart failure: PLAN: Recommend to hold spironolactone avoid overdiuresis (3) Hyperkalemia: PLAN: Diuretics stop spironolactone Kayexalate (4) HTN (hypertension): PLAN: Controlled monitor HPI Consult Data Date of Consult: 06/23/20 HPI Narrative HPI Narrative: KENDALL BUTLER, is a 64 F with past medical history as below who presents progressively worsening shortness of breath dyspnea at rest and worsening edema for a few months prior to admission. She gained about 20 pounds in the last 4 months. She is on home oxygen on 4 L/min. She was started on spironolactone on June 10, 2020. She has severe pulmonary hypertension. Chest x- ray showed chronic interstitial changes no acute pulmonary process. The patient denies fever dysuria hematuria nausea vomiting. Has on and off mild diarrhea for a long time no change in pattern. Denies ever seeing a business analytics intern. Her serum creatinine was 1.46 in March the highest value 2.34 on April 05, 2020. And today on admission her creatinine was 2.7. She has no other complaints. Denies history of nephrolithiasis or ever seeing a urologist. The only other previous serum creatinine available at this time is 1.04 in October 2014. Review of systems otherwise negative unless noted in the HPI. [facility] Medical History (Updated 06/23/20 @ 14:[address] 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, with long- term current use of insulin Home Medications aspirin 81 mg PO DAILY@0800 10/27/14 [History Last Taken 06/22/20 08:00] cholecalciferol (vitamin D3) 5,000 unit PO TU 10/27/14 [History Last Taken 06/16/20] Gabapentin 600 mg PO Q4H PRN PRN 04/02/20 [History Last Taken Unknown] allopurinol 200 mg PO DAILYCM 04/02/20 [History Last Taken 06/22/20 08:00] bupropion HCl 150 mg PO DAILY 04/02/20 [History Last Taken 06/22/20 08:00] carvedilol 12.5 mg PO BID 04/02/20 [History Last Taken 06/22/20 22:00] insulin detemir U-100 60 units SC BID 04/02/20 [History Last Taken 06/22/20 20:00] ropinirole 8 mg PO QHS 04/02/20 [History Last Taken 06/22/20 22:00] Fluoxetine HCl 80 mg PO DAILY 04/03/20 [History Last Taken 06/22/20 08:00] colchicine 0.6 mg PO PRN PRN 04/03/20 [History Last Taken Unknown] oxybutynin chloride 5 mg PO DAILY 04/03/20 [History Last Taken 06/22/20 08:00] albuterol sulfate 2 puff INHALATION UD PRN #1 inhaler 04/05/20 [Rx Last Taken Unknown] amlodipine 10 mg tablet 10 mg PO DAILY 04/22/20 [History Last Taken 06/22/20 08:00] triamcinolone acetonide 0.1 % dental paste 1 applic DENTAL BID 04/22/20 [History Last Taken Unknown] bumetanide 2 mg tablet 2 mg PO DAILY #90 tab 06/10/20 [Rx Last Taken 06/22/20 08:00] atorvastatin 40 mg PO QHS 06/23/20 [History Last Taken 06/22/20 22:00] glipizide 5 mg PO DAILY 06/23/20 [History Last Taken 06/22/20 08:00] insulin aspart U-100 40 units SC TIDCM 06/23/20 [History Last Taken 06/22/20 17:00] spironolactone 25 mg PO DAILY 06/23/20 [History Last Taken 06/22/20 08:00] Allergy/AdvReac Type Severity Reaction Status Date / Time latex Allergy Swelling Verified 06/23/20 07:50 oxycodone Allergy Shortness Verified 06/23/20 07:50 of breath Penicillins Allergy Unknown Verified 06/23/20 07:50 pregabalin [From Lyrica] Allergy Anaphylaxis Verified 06/23/20 07:50 Family History Mother Diabetes Cancer Colon Father Diabetes CVA (cerebral vascular accident) Surgical History Amputation toe H/O: hysterectomy History of appendectomy History of cholecystectomy Social History (Updated 06/23/20 @ 11:22 by Daly Mckeon) household members: spouse housing: house number of children: 2 financial difficulty paying for basics: not applicable service: No current occupational status: disabled current occupational exposures/hazards: No pets and animals: Yes (dog) leisure activities: other Smoking Status: Former smoker quit date: 02/07/04 Physical Exam Const alert and no apparent distress General Appearance: comfortable HEENT normocephalic HEENT Narrative: atraumatic Neck General: normal visual inspection and trachea midline Resp normal respiratory effort and clear to auscultation bilaterally Cardio regular rate, regular rhythm, S1 normal heart sound and S2 normal heart sound GI soft to palpation and non-tender GI Narrative: Morbidly obese Extremity Extremity Narrative: Edema pretibial bilaterally Neuro Sensorium / Orientation: awake and alert Lab / Micro Data Result Diagrams: 06/23/20 08:05 06/23/20 08:05 Labs: Laboratory Results - last 24 hr 06/23/20 06/23/20 06/23/20 08:05 08:05 08:05 WBC 9.5 RBC 3.85 L Hgb 11.7 L Hct 36.7 L MCV 95.3 MCH 30.4 MCHC 31.9 L RDW Std Deviation 45.8 H RDW Coeff of Varun 13.3 Plt Count 203 MPV 9.4 Immature Gran % (Auto) 0.400 Neut % (Auto) 77.2 H Lymph % (Auto) 14.1 L [place] % (Auto) 4.2 Eos % (Auto) 3.8 Baso % (Auto) 0.3 Absolute Neuts (auto) 7.3 Absolute Lymphs (auto) 1.34 Nucleated RBC % 0 Sodium 133 L Potassium 5.4 H Chloride 100 Carbon Dioxide 30.0 Anion Gap 3 L BUN 91 H Creatinine 2.70 H Estim Creat Clear Calc 18.42 Est GFR (MDRD) Af Amer 23 L Est GFR (MDRD) Non-Af 19 L BUN/Creatinine Ratio 33.7 H Glucose 214 H Calcium 8.6 Magnesium Troponin I 0.018 B-Natriuretic Peptide 16.4 POC Glucose 06/23/20 06/23/20 08:05 11:37 WBC RBC Hgb Hct MCV MCH MCHC RDW Std Deviation RDW Coeff of Varun Plt Count MPV Immature Gran % (Auto) Neut % (Auto) Lymph % (Auto) [place] % (Auto) Eos % (Auto) Baso % (Auto) Absolute Neuts (auto) Absolute Lymphs (auto) Nucleated RBC % Sodium Potassium Chloride Carbon Dioxide Anion Gap BUN Creatinine Estim Creat Clear Calc Est GFR (MDRD) Af Amer Est GFR (MDRD) Non-Af BUN/Creatinine Ratio Glucose Calcium Magnesium 2.3 Troponin I B-Natriuretic Peptide POC Glucose 232 H Radiology Impression Chest X-Ray 06/23/20 08:11 IMPRESSION: Chronic interstitial changes, no superimposed acute pulmonary process Electronically Signed: Junaid Fernandez MD at 8:55 EDT , Service support ,
--- NOTE | 2020-06-23 14:32 | US_ITS ---
STUDY: RENAL ULTRASOUND - COMPLETE REASON FOR EXAM: Female, 64 years old. kelsi TECHNIQUE: Ultrasound evaluation of the kidneys was performed with real-time and static andrade-scale imaging. COMPARISON: None. FINDINGS: Exam limited by patient size and bowel gas. RIGHT KIDNEY: Normal location of the right kidney, which is normal in size. The right kidney measures 9.8 x 4.9 x 5.6 cm. There is a normal cortex of the right kidney. The renal cortex measures 2.5 cm. There is no right renal mass or cyst. There are no right renal calculi. There is no right hydronephrosis. DISTAL RIGHT URETER: There is non-visualization of the distal right ureter. There is no demonstrated right ureterovesical junction calculus. There is no demonstrated right ureteral jet. LEFT KIDNEY: Normal location of the left kidney, which is normal in size. The left kidney measures 11.5 x 4.6 x 5.5 cm. There is a normal cortex of the left kidney. The renal cortex measures 1.6 cm. There is no left renal mass or cyst. There are no left renal calculi. There is no left hydronephrosis. DISTAL LEFT URETER: There is non-visualization of the distal left ureter. There is no demonstrated left ureterovesical junction calculus. There is no demonstrated left ureteral jet. BLADDER: The distended urinary bladder has a volume of 233 ml. There is a normal wall thickness of the distended urinary bladder. There is no demonstrated mass within the urinary bladder. There are no demonstrated bladder calculi. US/Kidney and Bladder IMPRESSION: Normal ultrasound of the kidneys and urinary bladder. Electronically Signed: Junaid Tovar MD at 0:02 EDT , Service support ,
[2020-06-23 15:19] LABS: Bacteria 0 SEEN /hpf (None Seen); Mucous, Urine 0 SEEN /hpf (<or=2+); Red Blood Cells-Urine 0 SEEN /hpf (0-5)
[2020-06-23 15:26] LABS: Color, Urine Yellow (Yellow); Glucose, Dipstick Normal (Normal); Ketone-Dipstick Negative (Negative); Leukocyte Esterase-Dipstick Negative /ul (Negative); Nitrite-Dipstick Negative (Negative); Occult Blood-Urine Negative /ul (Negative); Protein-Dipstick Negative (Negative); Specific Gravity, Urine 1.015 (1.002-1.030); Urine Bilirubin Dipstick Negative (Negative); Urine Clarity Clear (Clear); Urine Urobilinogen Normal (Normal)
[2020-06-23 15:35] LABS: Protein, Urine (Random) 8.8 mg/dL (<11.9); Urea Nitrogen, Urine 347 mg/dL (NO RANGE EST.)
[2020-06-23] MEDS: Gabapentin 600 MG Tablet PO ×2 (15:42→21:52)
[2020-06-23 16:08] LABS: Squamous Epithelial Cells - UA 0-5 SEEN /hpf (5-10); White Blood Cells 0-5 SEEN /hpf (0-5)
[2020-06-23] MEDS: metOLazone 5 MG Tablet PO (17:01)
[2020-06-23] MEDS: Sodium Polystyrene Sulfonate 15 GM/60 ML UDC PO (17:01)
[2020-06-23] MEDS: Insulin Lispro 100 UNIT/ML INSULN.PEN 30 UNIT SC (17:11)
[2020-06-23 17:20] LABS: Bedside Glucose 260 mg/dL (70-110)
[2020-06-23] MEDS: Carvedilol 12.5 MG Tablet PO (21:52)
[2020-06-23] MEDS: Heparin Injection (Vial) 5,000 UNIT/ML VIAL 5000 UNIT SC (21:52)
[2020-06-23] MEDS: Atorvastatin Calcium 40 MG Tablet PO (21:53)
[2020-06-23] MEDS: Pramipexole Di-HCl 0.5 MG Tablet 1.5 MG PO (21:53)
[2020-06-23 22:00] LABS: Bedside Glucose 291 mg/dL (70-110)
[2020-06-24] VITALS (10 sets, daily range): BP systolic 123–153; BP diastolic 51–69; PULSE 67–88; RESP 18; TEMP 36.4–36.6; O2SAT 94–99
[2020-06-24 07:10] LABS: Absolute Neutrophil Count 5.6 X10^3/uL (2.0-7.7); Basophil# 0.03 X10^3/uL; Basophil% 0.4 % (0-1); Eosinophil# 0.36 X10^3/uL; Eosinophils% 4.5 % (0-5); Hematocrit 35.5 % (37-47); Hemoglobin 11.3 g/dL (12.0-15.0); Lymphocyte % 19.9 % (19-41); Mean Corp Hgb Conc 31.8 g/dL (32-36); Mean Corpuscular Hgb 30.1 pg (27.0-32.0); Mean Corpuscular Volume 94.7 fL (81-99); Mean Platelet Vol. 10.3 fl (6.2-12.0); Monocyte# 0.46 X10^3/uL; Monocyte% 5.7 % (0-10); NRBC Flagged by Analyzer 0 % (0-5); Neutrophil # 5.55 X10^3/uL (2.7-7.7); Neutrophil % 69.1 % (47-70); Platelet Count 222 K/mm3 (150-450); RBC Distribution Width CV 13.3 % (11.6-14.6); RBC Distribution Width SD 45.7 fl (35.1-43.9); Red Blood Count 3.75 M/mm3 (4.2-5.4)
[2020-06-24 07:58] LABS: Anion Gap 7 (5-15); BUN 99 mg/dL (7-18); BUN/Creat Ratio 41.8 RATIO (10-20); Calcium,Total 8.5 mg/dL (8.5-10.1); Chloride 98 mmol/L (98-107); Cholesterol 120 mg/dL (200); Creatinine, Serum 2.37 mg/dL (0.55-1.02); EST Glomerular Filtration Rate 22 mL/min (>60); Est Glom Filt Rate - Afr Amer 27 mL/min (>60); Estimated Creatinine Clearance 20.98 ml/min; Glucose 271 mg/dL (74-106); High Density Lipoprotein 34 mg/dL; Magnesium 2.3 mg/dL (1.6-2.6); Phosphorus 5.8 mg/dL (2.5-4.9); Potassium 4.9 mmol/L (3.5-5.1); Sodium Level 134 mmol/L (136-145); Thyroid Stim Hormone (TSH) 0.75 uIU/mL (0.358-3.74); Triglycerides 188 mg/dL; Very Low Density Lipoprotein 38 mg/dL (5-40)
[2020-06-24] MEDS: Aspirin 81 MG TAB.CHEW PO (09:31)
[2020-06-24] MEDS: buPROPion (XL) 150 MG TABLET.XL PO (09:31)
[2020-06-24] MEDS: metOLazone 5 MG Tablet PO (09:31)
[2020-06-24] MEDS: Allopurinol 100 MG Tablet 200 MG PO (09:32)
[2020-06-24] MEDS: Carvedilol 12.5 MG Tablet PO ×2 (09:32→21:39)
[2020-06-24] MEDS: Tolterodine Tartrate 2 MG CAP.SA PO (09:32)
[2020-06-24] MEDS: Insulin Lispro 100 UNIT/ML INSULN.PEN 30 UNIT SC ×3 (09:38→16:57)
[2020-06-24] MEDS: Heparin Injection (Vial) 5,000 UNIT/ML VIAL 5000 UNIT SC ×2 (09:39→21:40)
[2020-06-24] MEDS: 0.9% Saline Lock 10 ML Syringe IV (09:41)
--- NOTE | 2020-06-24 10:44 | PCM.PN.REN ---
Subjective Subjective The patient still has shortness of breath but is better Objective Data Objective Data Vital Signs: Vital Signs Temp Pulse Resp BP Pulse Ox 97.9 F 88 18 142/69 H 99 06/24/20 09:30 06/24/20 09:30 06/24/20 09:30 06/24/20 09:30 06/24/20 09:30 Oxygen Flow Rate (L/min) 3 Oxygen Delivery Method Nasal Cannula Weight: 167.013 kg Body Mass Index (BMI) 62.8 Intake & Output: Intake and Output for Last 24 Hours 06/22/20 06/23/20 06/24/20 23:59 23:59 23:59 Intake Total 640 / 1140 725 / 725 Output Total 600 / 2750 2750 / 2750 Balance 40 / -1610 -2024 / -2024 Lab / Micro Data Result Diagrams: 06/24/20 05:55 06/24/20 05:55 Labs: Laboratory Results - last 24 hr 06/23/20 06/23/20 06/23/20 08:05 11:37 14:10 WBC RBC Hgb Hct MCV MCH MCHC RDW Std Deviation RDW Coeff of Varun Plt Count MPV Immature Gran % (Auto) Neut % (Auto) Lymph % (Auto) [place] % (Auto) Eos % (Auto) Baso % (Auto) Absolute Neuts (auto) Absolute Lymphs (auto) Nucleated RBC % Sodium Potassium Chloride Carbon Dioxide Anion Gap BUN Creatinine Estim Creat Clear Calc Est GFR (MDRD) Af Amer Est GFR (MDRD) Non-Af BUN/Creatinine Ratio Glucose Calcium Phosphorus Magnesium 2.3 Troponin I 0.019 Triglycerides Cholesterol LDL Cholesterol VLDL Cholesterol HDL Cholesterol TSH Urine Color Urine Clarity Urine pH Ur Specific [place] Urine Protein Urine Glucose (UA) Urine Ketones Urine Occult Blood Urine Nitrite Urine Bilirubin Urine Urobilinogen Ur Leukocyte Esterase Urine RBC Urine WBC Ur Squamous Epith Cells Urine Bacteria Urine Mucus U Random Total Protein Urine Creatinine Urine Urea Nitrogen POC Glucose 232 H 06/23/20 06/23/20 06/23/20 15:00 15:00 15:00 WBC RBC Hgb Hct MCV MCH MCHC RDW Std Deviation RDW Coeff of Varun Plt Count MPV Immature Gran % (Auto) Neut % (Auto) Lymph % (Auto) [place] % (Auto) Eos % (Auto) Baso % (Auto) Absolute Neuts (auto) Absolute Lymphs (auto) Nucleated RBC % Sodium Potassium Chloride Carbon Dioxide Anion Gap BUN Creatinine Estim Creat Clear Calc Est GFR (MDRD) Af Amer Est GFR (MDRD) Non-Af BUN/Creatinine Ratio Glucose Calcium Phosphorus Magnesium Troponin I Triglycerides Cholesterol LDL Cholesterol VLDL Cholesterol HDL Cholesterol TSH Urine Color Yellow Urine Clarity Clear Urine pH 6.0 Ur Specific [place] 1.015 Urine Protein Negative Urine Glucose (UA) Normal Urine Ketones Negative Urine Occult Blood Negative Urine Nitrite Negative Urine Bilirubin Negative Urine Urobilinogen Normal Ur Leukocyte Esterase Negative Urine RBC 0 SEEN Urine WBC 0-5 SEEN Ur Squamous Epith Cells 0-5 SEEN Urine Bacteria 0 SEEN Urine Mucus 0 SEEN U Random Total Protein 8.8 Urine Creatinine 46.40 Cancelled Urine Urea Nitrogen 347 POC Glucose 06/23/20 06/23/20 06/23/20 17:05 17:22 21:38 WBC RBC Hgb Hct MCV MCH MCHC RDW Std Deviation RDW Coeff of Varun Plt Count MPV Immature Gran % (Auto) Neut % (Auto) Lymph % (Auto) [place] % (Auto) Eos % (Auto) Baso % (Auto) Absolute Neuts (auto) Absolute Lymphs (auto) Nucleated RBC % Sodium Potassium Chloride Carbon Dioxide Anion Gap BUN Creatinine Estim Creat Clear Calc Est GFR (MDRD) Af Amer Est GFR (MDRD) Non-Af BUN/Creatinine Ratio Glucose Calcium Phosphorus Magnesium Troponin I 0.022 Triglycerides Cholesterol LDL Cholesterol VLDL Cholesterol HDL Cholesterol TSH Urine Color Urine Clarity Urine pH Ur Specific [place] Urine Protein Urine Glucose (UA) Urine Ketones Urine Occult Blood Urine Nitrite Urine Bilirubin Urine Urobilinogen Ur Leukocyte Esterase Urine RBC Urine WBC Ur Squamous Epith Cells Urine Bacteria Urine Mucus U Random Total Protein Urine Creatinine Urine Urea Nitrogen POC Glucose 260 H 291 H 06/24/20 06/24/20 05:55 05:55 WBC 8.0 RBC 3.75 L Hgb 11.3 L Hct 35.5 L MCV 94.7 MCH 30.1 MCHC 31.8 L RDW Std Deviation 45.7 H RDW Coeff of Varun 13.3 Plt Count 222 MPV 10.3 Immature Gran % (Auto) 0.400 Neut % (Auto) 69.1 Lymph % (Auto) 19.9 [place] % (Auto) 5.7 Eos % (Auto) 4.5 Baso % (Auto) 0.4 Absolute Neuts (auto) 5.6 Absolute Lymphs (auto) 1.60 Nucleated RBC % 0 Sodium 134 L Potassium 4.9 Chloride 98 Carbon Dioxide 29.0 Anion Gap 7 BUN 99 H Creatinine 2.37 H Estim Creat Clear Calc 20.98 Est GFR (MDRD) Af Amer 27 L Est GFR (MDRD) Non-Af 22 L BUN/Creatinine Ratio 41.8 H Glucose 271 H Calcium 8.5 Phosphorus 5.8 H Magnesium 2.3 Troponin I Triglycerides 188 Cholesterol 120 LDL Cholesterol 48 VLDL Cholesterol 38 HDL Cholesterol 34 L TSH 0.75 Urine Color Urine Clarity Urine pH Ur Specific [place] Urine Protein Urine Glucose (UA) Urine Ketones Urine Occult Blood Urine Nitrite Urine Bilirubin Urine Urobilinogen Ur Leukocyte Esterase Urine RBC Urine WBC Ur Squamous Epith Cells Urine Bacteria Urine Mucus U Random Total Protein Urine Creatinine Urine Urea Nitrogen POC Glucose Radiography Diagnostic Testing: Radiology Impression Renal Ultrasound 06/23/20 14:32 IMPRESSION: Normal ultrasound of the kidneys and urinary bladder. Electronically Signed: Junaid Tovar MD at 0:02 EDT , Service support , Physical Exam Const alert and no apparent distress General Appearance: comfortable HEENT normocephalic Neck General: normal visual inspection and trachea midline Resp normal respiratory effort and clear to auscultation bilaterally Cardio regular rate, regular rhythm, S1 normal heart sound and S2 normal heart sound GI soft to palpation and non-tender GI Narrative: Morbidly obese Extremity Extremity Narrative: Edema pretibial bilaterally Neuro Sensorium / Orientation: awake and alert Assessment & Plan Assessment/Plan (1) MARCELA (acute kidney injury): PLAN: Likely cardiorenal syndrome superimposed on CKD Baseline seems to be in the 1.4-2.3 range scr 2.3 back to baseline. Continue for 1 more day the Lasix drip still has shortness of breath though better. Urine output is 3350 mL with -1985 mL Avoid overdiuresis Hold spironolactone Renal ultrasound reviewed and is normal Avoid nephrotoxins (2) Acute on chronic diastolic (congestive) heart failure: PLAN: Recommend to hold spironolactone avoid overdiuresis (3) Hyperkalemia: PLAN: Diuretics and hold spironolactone. 4.9 today monitor (4) HTN (hypertension): PLAN: Controlled monitor
--- NOTE | 2020-06-24 11:20 | CASEMGMT ---
Addendum entered by Michelle Johnson 06/24/20 12:46: TC to [facility], spoke with Lily to confirm pt rx for O2 is 3L NC cont. Addendum entered by Michelle Johnson 06/24/20 12:07: Pt also states she is on 3L NC O2 at home. She uses [facility]. TC to [facility] who states pt was a pt of theirs in the past. They would be willing to take her back. Referral made and accepted. . Original Note: DEREK IYER Assessment: Face to Face with pt for initial transition planning/care coordination assessment. DEREK IYER introduced self and role at [facility], pt voices understanding and consents to assessment. Pt is A/O x4 and answers all questions appropriately at this time. Pt sitting up in chair in no distress with O2 on. Care providers, pharmacy, and demographics verified/updated. Admitting Dx: acute recurrent CHF, dyspnea PCP: Brittanie Specialists: buster Braswell; adela Reynoso Preferred Pharmacy: [facility] in [place] Insurance: MMO Prescription Benefit: yes LW/HPOA: Pt has LW and DPOA on file at [facility]. Her DPOA is her dtr, Oksana Felix. LNOK: Gio Atkins, ; Oksana Felix, dtr Living Arrangements: Pt lives with in a single story house with 3 steps to enter with a rail. Pt reports being I in ADL's although states she cannot walk. Pt denies concerns at home. Transportation: Pt states she drives when I want to and if I don't want to, I don't. Denies concerns with transportation. DME/HHC/SNF: Pt has a w/c, walker, rollator and shower chair. Pt states she recently had HHC through an agency in [facility]. She is unsure of the name of the agency. They provided SN and therapy. Pt denies previous SNF stays. Pt states no concerns with going home at time of dc. She states she would like HHC again to help her ambulate. She states she would not want s/t therapy in a facility as her brother passed in a facility while getting rehab. CM to try to find agency she recently used to make a referral. Pt states no further concerns/needs. CM to follow. Advised pt to ask CM if any further question/concerns/needs arise, voices understanding. Pt Goal: Home with HHC. Plan: Home with HHC and family support.
[2020-06-24] MEDS: Gabapentin 600 MG Tablet PO ×3 (11:36→21:39)
[2020-06-24 11:37] LABS: Bedside Glucose 296 mg/dL (70-110)
[2020-06-24 11:39] LABS: Bedside Glucose 354 mg/dL (70-110)
--- NOTE | 2020-06-24 14:40 | PN.HOSP_ITS ---
Subjective Subjective Patient feels improvement in her breathing and swelling on diuretic. Patient is undergoing echo. Seen by director of resource development. Objective Data Objective Data Vital Signs: Vital Signs Temp Pulse Resp BP Pulse Ox 97.9 F 85 18 142/69 H 99 06/24/20 09:30 06/24/20 11:00 06/24/20 09:30 06/24/20 09:30 06/24/20 09:30 Oxygen Flow Rate (L/min) 3 Oxygen Delivery Method Nasal Cannula Weight: 368 lb 3.2 oz Body Mass Index (BMI) 62.8 Intake & Output: Intake and Output for Last 24 Hours 06/22/20 06/23/20 06/24/20 23:59 23:59 23:59 Intake Total 640 / 1140 1085 / 1085 Output Total 600 / 2750 3850 / 3850 Balance 40 / -1610 -2765 / -2765 Lab / Micro Data Result Diagrams: 06/24/20 05:55 06/24/20 05:55 Labs: Laboratory Results - last 24 hr 06/23/20 06/23/20 06/23/20 14:10 15:00 15:00 WBC RBC Hgb Hct MCV MCH MCHC RDW Std Deviation RDW Coeff of Varun Plt Count MPV Immature Gran % (Auto) Neut % (Auto) Lymph % (Auto) [place] % (Auto) Eos % (Auto) Baso % (Auto) Absolute Neuts (auto) Absolute Lymphs (auto) Nucleated RBC % Sodium Potassium Chloride Carbon Dioxide Anion Gap BUN Creatinine Estim Creat Clear Calc Est GFR (MDRD) Af Amer Est GFR (MDRD) Non-Af BUN/Creatinine Ratio Glucose Calcium Phosphorus Magnesium Troponin I 0.019 Triglycerides Cholesterol LDL Cholesterol VLDL Cholesterol HDL Cholesterol TSH Urine Color Yellow Urine Clarity Clear Urine pH 6.0 Ur Specific [place] 1.015 Urine Protein Negative Urine Glucose (UA) Normal Urine Ketones Negative Urine Occult Blood Negative Urine Nitrite Negative Urine Bilirubin Negative Urine Urobilinogen Normal Ur Leukocyte Esterase Negative Urine RBC 0 SEEN Urine WBC 0-5 SEEN Ur Squamous Epith Cells 0-5 SEEN Urine Bacteria 0 SEEN Urine Mucus 0 SEEN U Random Total Protein 8.8 Urine Creatinine 46.40 Urine Urea Nitrogen 347 POC Glucose 06/23/20 06/23/20 06/23/20 15:00 17:05 17:22 WBC RBC Hgb Hct MCV MCH MCHC RDW Std Deviation RDW Coeff of Varun Plt Count MPV Immature Gran % (Auto) Neut % (Auto) Lymph % (Auto) [place] % (Auto) Eos % (Auto) Baso % (Auto) Absolute Neuts (auto) Absolute Lymphs (auto) Nucleated RBC % Sodium Potassium Chloride Carbon Dioxide Anion Gap BUN Creatinine Estim Creat Clear Calc Est GFR (MDRD) Af Amer Est GFR (MDRD) Non-Af BUN/Creatinine Ratio Glucose Calcium Phosphorus Magnesium Troponin I 0.022 Triglycerides Cholesterol LDL Cholesterol VLDL Cholesterol HDL Cholesterol TSH Urine Color Urine Clarity Urine pH Ur Specific [place] Urine Protein Urine Glucose (UA) Urine Ketones Urine Occult Blood Urine Nitrite Urine Bilirubin Urine Urobilinogen Ur Leukocyte Esterase Urine RBC Urine WBC Ur Squamous Epith Cells Urine Bacteria Urine Mucus U Random Total Protein Urine Creatinine Cancelled Urine Urea Nitrogen POC Glucose 260 H 06/23/20 06/24/20 06/24/20 21:38 05:55 05:55 WBC 8.0 RBC 3.75 L Hgb 11.3 L Hct 35.5 L MCV 94.7 MCH 30.1 MCHC 31.8 L RDW Std Deviation 45.7 H RDW Coeff of Varun 13.3 Plt Count 222 MPV 10.3 Immature Gran % (Auto) 0.400 Neut % (Auto) 69.1 Lymph % (Auto) 19.9 [place] % (Auto) 5.7 Eos % (Auto) 4.5 Baso % (Auto) 0.4 Absolute Neuts (auto) 5.6 Absolute Lymphs (auto) 1.60 Nucleated RBC % 0 Sodium 134 L Potassium 4.9 Chloride 98 Carbon Dioxide 29.0 Anion Gap 7 BUN 99 H Creatinine 2.37 H Estim Creat Clear Calc 20.98 Est GFR (MDRD) Af Amer 27 L Est GFR (MDRD) Non-Af 22 L BUN/Creatinine Ratio 41.8 H Glucose 271 H Calcium 8.5 Phosphorus 5.8 H Magnesium 2.3 Troponin I Triglycerides 188 Cholesterol 120 LDL Cholesterol 48 VLDL Cholesterol 38 HDL Cholesterol 34 L TSH 0.75 Urine Color Urine Clarity Urine pH Ur Specific [place] Urine Protein Urine Glucose (UA) Urine Ketones Urine Occult Blood Urine Nitrite Urine Bilirubin Urine Urobilinogen Ur Leukocyte Esterase Urine RBC Urine WBC Ur Squamous Epith Cells Urine Bacteria Urine Mucus U Random Total Protein Urine Creatinine Urine Urea Nitrogen POC Glucose 291 H 06/24/20 06/24/20 08:07 11:35 WBC RBC Hgb Hct MCV MCH MCHC RDW Std Deviation RDW Coeff of Varun Plt Count MPV Immature Gran % (Auto) Neut % (Auto) Lymph % (Auto) [place] % (Auto) Eos % (Auto) Baso % (Auto) Absolute Neuts (auto) Absolute Lymphs (auto) Nucleated RBC % Sodium Potassium Chloride Carbon Dioxide Anion Gap BUN Creatinine Estim Creat Clear Calc Est GFR (MDRD) Af Amer Est GFR (MDRD) Non-Af BUN/Creatinine Ratio Glucose Calcium Phosphorus Magnesium Troponin I Triglycerides Cholesterol LDL Cholesterol VLDL Cholesterol HDL Cholesterol TSH Urine Color Urine Clarity Urine pH Ur Specific [place] Urine Protein Urine Glucose (UA) Urine Ketones Urine Occult Blood Urine Nitrite Urine Bilirubin Urine Urobilinogen Ur Leukocyte Esterase Urine RBC Urine WBC Ur Squamous Epith Cells Urine Bacteria Urine Mucus U Random Total Protein Urine Creatinine Urine Urea Nitrogen POC Glucose 296 H 354 H Radiography Diagnostic Testing: Radiology Impression Renal Ultrasound 06/23/20 14:32 IMPRESSION: Normal ultrasound of the kidneys and urinary bladder. Electronically Signed: Junaid Tovar MD at 0:02 EDT , Service support , Physical Exam Narrative General: Alert, Oriented x3, Cooperative HEENT: Atraumatic, PERRLA, EOMI, Normocephalic Oral: No Gingival or Mucosal Lesions/ Ulcerations Neck: Supple, No JVD, Negative Carotid Bruits Lungs: Air entry diminished in bilateral lung bases. No crepitations. Dyspnea on exertion. Mild expiratory rhonchi. Cardiovascular: Regular rate, Regular Rhythm, Normal S1, Normal S2, No murmurs Abdomen: Bowel Sounds Present, Soft, Non Tender, mild ventral hernia. Abdominal distention/ascites : Decreased urine output. No renal angle tenderness. No suprapubic tenderness. Extremities: Bilateral lower extremity edema, Capillary Refill Less than 3 Seconds Skin: No rashes, No breakdown Musculoskeletal: ROM restricted. Diffuse degenerative arthritis of lower extremity. Neurological: Cranial nerves II-XII grossly intact, Deep Tendon Reflexes 2+/4 Psych/Mental Status: Normal Affect, Appropriate. Assessment & Plan Assessment/Plan (1) Secondary pulmonary arterial hypertension: (2) Essential (primary) hypertension: (3) Acute on chronic diastolic (congestive) heart failure: PLAN: KENDALL BUTLER, is a 64 F who presents to the ER with progressive worsening shortness of breath since November 2019, dyspnea at rest, anasarca. Chest x-ray immediately reviewed shows chronic interstitial changes with underventilated image. EKG shows sinus rhythm at 81 bpm, QTC 455 ms. 1. Acute on chronic diastolic heart failure, severe pulmonary hypertension with chronic hypoxic respiratory failure: Patient is being admitted in PCU. Lasix 40 mg IV in ED and started on Lasix drip. Metolazone 5 mg daily. BNP 16.4 but may be falsely negative as patient is morbidly obese. She recently had an echo in March 29 showed EF 70%, LA mildly enlarged, mild MR, RVSP 56 mg consistent with severe pulmonary hypertension. Heart failure core measures including intake and output, fluid restriction less than 1500 mL, daily weight monitoring, kidney and electrolytes monitoring. Continue patient's Coreg and atorvastatin. 06/24: Fasting profile within normal limits except HDL 34. TSH 0.75. Mild hyponatremia due to diuresis. Serial troponins negative. Limited echo was done shows EF 60% with mild concentric LVH. RVSP 47 mmHg with mild TR. It is consistent with diastolic heart failure but no significant change from previous echo. 2. Acute kidney injury on CKD stage IIIb secondary to diuretic, diabetic nephropathy and cardiorenal disease: Wood Lather was consulted for progression of kidney disease. Diuretic management. Hold spironolactone as potassium is elevated. 06/24: MARCELA most probably due to cardiorenal syndrome. Advised to continue Lasix drip for 1 more day. Negative fluid balance about 2 L. Avoid nephrotoxins. Renal ultrasound reported as normal. 3 restrictive lung disease, obstructive sleep apnea: Patient had recent PFT in May 27 showed mild restrictive ventilatory defect with an disproportionate reduction in diffusing capacity, 37%. Decreased TLC 76% of predicted. Continue BiPAP. 4. Diabetes mellitus type 2, complicated with diabetic nephropathy and n europathy: 5. Hypertension, anxiety and depression: Currently blood pressure is normal range. Home medication reconciliation done. Living will/advanced directive/end of life care: Patient does have living will or advanced directive. Her is power of city attorney for health. After discussion of benefits/risks procedures involved with full code, DNR CC arrest and DNR CC, the patient opted for DNR-CC Arrest with no intubation. Patient does not want hemodialysis. Patient does not want artificial life support including intubation, tube feed, ventilator and/chest compression, central venous catheter, vasopressor and DC shock if needed Total time spent in [id number] encounter in discussion of advanced directive 16 minutes. VTE prophylaxis: Heparin 500 subcutaneous. Clinical Impression(s) from Imaging Studies Chest X-Ray 06/23/20 08:11 IMPRESSION: Chronic interstitial changes, no superimposed acute pulmonary process Renal Ultrasound 06/23/20 14:32 IMPRESSION: Normal ultrasound of the kidneys and urinary bladder. Visit Charges Inpatient E&M: 75278 Subs Hosp L2
[2020-06-24] MEDS: Furosemide 500 MG in Empty Viaflex 50 mL 1 EACH CONT INF (16:25)
[2020-06-24 16:40] LABS: Bedside Glucose 177 mg/dL (70-110)
[2020-06-24] MEDS: Atorvastatin Calcium 40 MG Tablet PO (21:39)
[2020-06-24] MEDS: Pramipexole Di-HCl 0.5 MG Tablet 1.5 MG PO (21:39)
[2020-06-24 22:11] LABS: Bedside Glucose 159 mg/dL (70-110)
[2020-06-25] VITALS (9 sets, daily range): BP systolic 103–134; BP diastolic 47–71; PULSE 63–92; RESP 16–20; TEMP 36.6–36.8; O2SAT 92–97
[2020-06-25] MEDS: Allopurinol 100 MG Tablet 200 MG PO (08:11)
[2020-06-25] MEDS: Aspirin 81 MG TAB.CHEW PO (08:11)
[2020-06-25] MEDS: Heparin Injection (Vial) 5,000 UNIT/ML VIAL 5000 UNIT SC ×2 (08:11→21:40)
[2020-06-25] MEDS: Carvedilol 12.5 MG Tablet PO ×2 (08:11→21:42)
[2020-06-25] MEDS: buPROPion (XL) 150 MG TABLET.XL PO (08:12)
[2020-06-25] MEDS: Gabapentin 600 MG Tablet PO ×3 (08:12→21:40)
[2020-06-25] MEDS: metOLazone 5 MG Tablet PO (08:12)
[2020-06-25] MEDS: Tolterodine Tartrate 2 MG CAP.SA PO (08:12)
[2020-06-25] MEDS: 0.9% Saline Lock 10 ML Syringe IV ×2 (08:17→17:06)
[2020-06-25 08:26] LABS: Bedside Glucose 282 mg/dL (70-110)
[2020-06-25] MEDS: Insulin Lispro 100 UNIT/ML INSULN.PEN 30 UNIT SC ×2 (09:17→12:35)
--- NOTE | 2020-06-25 09:43 | CASEMGMT ---
DEREK CM in to pt room to make aware that [facility] stated they had her prior and is willing to see her again. She states she does not feel that is the correct name of agency. She is agreeable to [facility] and aware referral set up.
[2020-06-25 12:07] LABS: Anion Gap 9 (5-15); BUN 102 mg/dL (7-18); BUN/Creat Ratio 49.8 RATIO (10-20); Calcium,Total 9.2 mg/dL (8.5-10.1); Chloride 96 mmol/L (98-107); Creatinine, Serum 2.05 mg/dL (0.55-1.02); EST Glomerular Filtration Rate 26 mL/min (>60); Est Glom Filt Rate - Afr Amer 31 mL/min (>60); Estimated Creatinine Clearance 24.26 ml/min; Glucose 295 mg/dL (74-106); Phosphorus 4.4 mg/dL (2.5-4.9); Potassium 4.4 mmol/L (3.5-5.1); Sodium Level 137 mmol/L (136-145)
[2020-06-25 12:40] LABS: Bedside Glucose 262 mg/dL (70-110)
--- NOTE | 2020-06-25 13:36 | PCM.PN.REN ---
Subjective Subjective She states her shortness of breath is much better Objective Data Objective Data Vital Signs: Vital Signs Temp Pulse Resp BP Pulse Ox 98.0 F 76 20 H 134/56 H 92 06/25/20 09:55 06/25/20 09:55 06/25/20 09:55 06/25/20 09:55 06/25/20 09:55 Oxygen Flow Rate (L/min) 93 Oxygen Delivery Method Room Air Weight: 167.013 kg Body Mass Index (BMI) 62.8 Intake & Output: Intake and Output for Last 24 Hours 06/23/20 06/24/20 06/25/20 23:59 23:59 23:59 Intake Total 640 / 1140 1351.48 / 1551.48 630.17 / 630.17 Output Total 600 / 2750 4950 / 6375 3125 / 3125 Balance 40 / -1610 -3598.52 / -4823.52 -2494.83 / -2494.83 Lab / Micro Data Result Diagrams: 06/24/20 05:55 06/25/20 11:24 Labs: Laboratory Results - last 24 hr 06/24/20 06/24/20 06/25/20 16:30 21:28 08:08 Sodium Potassium Chloride Carbon Dioxide Anion Gap BUN Creatinine Estim Creat Clear Calc Est GFR (MDRD) Af Amer Est GFR (MDRD) Non-Af BUN/Creatinine Ratio Glucose Calcium Phosphorus Magnesium POC Glucose 177 H 159 H 282 H 06/25/20 06/25/20 11:24 12:30 Sodium 137 Potassium 4.4 Chloride 96 L Carbon Dioxide 32.0 Anion Gap 9 BUN 102 H* Creatinine 2.05 H Estim Creat Clear Calc 24.26 Est GFR (MDRD) Af Amer 31 L Est GFR (MDRD) Non-Af 26 L BUN/Creatinine Ratio 49.8 H Glucose 295 H Calcium 9.2 Phosphorus 4.4 Magnesium 2.0 POC Glucose 262 H Physical Exam Const alert and no apparent distress General Appearance: comfortable HEENT normocephalic Neck General: normal visual inspection and trachea midline Resp normal respiratory effort and clear to auscultation bilaterally Cardio regular rate, regular rhythm, S1 normal heart sound and S2 normal heart sound GI soft to palpation and non-tender GI Narrative: Morbidly obese Extremity Extremity Narrative: Edema pretibial bilaterally Neuro Sensorium / Orientation: awake and alert Assessment & Plan Assessment/Plan (1) MARCELA (acute kidney injury): PLAN: Likely cardiorenal syndrome superimposed on CKD Baseline seems to be in the 1.4-2.3 range scr 2.05 back to baseline. Change Lasix drip to boluses this afternoon. -3.3 L balance Avoid overdiuresis Hold spironolactone Avoid nephrotoxins (2) Acute on chronic diastolic (congestive) heart failure: PLAN: Recommend to hold spironolactone avoid overdiuresis. Change Lasix to boluses this afternoon (3) Hyperkalemia: PLAN: Diuretics and hold spironolactone. 4.4 today monitor (4) HTN (hypertension): QUALIFIERS: Hypertension type: essential hypertension Qualified Code(s): I10 - Essential (primary) hypertension PLAN: Controlled monitor
--- NOTE | 2020-06-25 13:56 | CASEMGMT ---
Pt screened with Palliative Care Screening Tool due to [employer] [employer], pt met criteria. Order received and faxed to Palliative at this time.
--- NOTE | 2020-06-25 14:47 | CASEMGMT ---
TC to [facility] to make aware pt will not dc today but likely tomorrow. Will fax info at that time. Spoke with Marilia.
--- NOTE | 2020-06-25 16:21 | PCM.PN.HOSP ---
Subjective Subjective Patient has improvement in her shortness of breath and sitting on the chair. Discussed with the patient's daughter near the bedside. Objective Data Objective Data Vital Signs: Vital Signs Temp Pulse Resp BP Pulse Ox 98.2 F 63 20 H 133/60 H 94 06/25/20 15:50 06/25/20 15:50 06/25/20 15:50 06/25/20 15:50 06/25/20 15:50 Oxygen Flow Rate (L/min) 3 Oxygen Delivery Method Nasal Cannula Weight: 368 lb 3.2 oz Body Mass Index (BMI) 62.8 Intake & Output: Intake and Output for Last 24 Hours 06/23/20 06/24/20 06/25/20 23:59 23:59 23:59 Intake Total 640 / 1140 1351.48 / 1551.48 632.00 / 632.00 Output Total 600 / 2750 4950 / 6375 3125 / 3125 Balance 40 / -1610 -3598.52 / -4823.52 -2493.00 / -2493.00 Lab / Micro Data Result Diagrams: 06/24/20 05:55 06/25/20 11:24 Labs: Laboratory Results - last 24 hr 06/24/20 06/24/20 06/25/20 16:30 21:28 08:08 Sodium Potassium Chloride Carbon Dioxide Anion Gap BUN Creatinine Estim Creat Clear Calc Est GFR (MDRD) Af Amer Est GFR (MDRD) Non-Af BUN/Creatinine Ratio Glucose Calcium Phosphorus Magnesium POC Glucose 177 H 159 H 282 H 06/25/20 06/25/20 11:24 12:30 Sodium 137 Potassium 4.4 Chloride 96 L Carbon Dioxide 32.0 Anion Gap 9 BUN 102 H* Creatinine 2.05 H Estim Creat Clear Calc 24.26 Est GFR (MDRD) Af Amer 31 L Est GFR (MDRD) Non-Af 26 L BUN/Creatinine Ratio 49.8 H Glucose 295 H Calcium 9.2 Phosphorus 4.4 Magnesium 2.0 POC Glucose 262 H Physical Exam Narrative quality assurance monitor final strip sinus rhythm with PVCs. General: Alert, Oriented x3, Cooperative, morbid obesity BMI 62.2 daily per meter square HEENT: Atraumatic, PERRLA, EOMI, Normocephalic Oral: No Gingival or Mucosal Lesions/ Ulcerations Neck: Supple, No JVD, Negative Carotid Bruits Lungs: Air entry diminished in bilateral lung bases. No crepitations. Mild dyspnea on exertion. Mild expiratory rhonchi. Cardiovascular: Regular rate, Regular Rhythm, Normal S1, Normal S2, No murmurs Abdomen: Bowel Sounds Present, Soft, Non Tender, mild ventral hernia. Abdominal distention/ascites : Decreased urine output. No renal angle tenderness. No suprapubic tenderness. Extremities: Bilateral lower extremity edema, Capillary Refill Less than 3 Seconds Skin: No rashes, No breakdown Musculoskeletal: ROM restricted. Diffuse degenerative arthritis of lower extremity. Neurological: Cranial nerves II-XII grossly intact, Deep Tendon Reflexes 2+/4 Psych/Mental Status: Normal Affect, Appropriate. Assessment & Plan Assessment/Plan (1) Secondary pulmonary arterial hypertension: (2) Essential (primary) hypertension: (3) Acute on chronic diastolic (congestive) heart failure: PLAN: KENDALL BUTLER, is a 64 F who presents to the ER with progressive worsening shortness of breath since November 2019, dyspnea at rest, anasarca. Chest x-ray immediately reviewed shows chronic interstitial changes with underventilated image. EKG shows sinus rhythm at 81 bpm, QTC 455 ms. 1. Acute on chronic diastolic heart failure, severe pulmonary hypertension with chronic hypoxic respiratory failure: Patient is being admitted in PCU. Lasix 40 mg IV in ED and started on Lasix drip. Metolazone 5 mg daily. BNP 16.4 but may be falsely negative as patient is morbidly obese. She recently had an echo in March 29 showed EF 70%, LA mildly enlarged, mild MR, RVSP 56 mg consistent with severe pulmonary hypertension. Heart failure core measures including intake and output, fluid restriction less than 1500 mL, daily weight monitoring, kidney and electrolytes monitoring. Continue patient's Coreg and atorvastatin. 06/24: Fasting profile within normal limits except HDL 34. TSH 0.75. Mild hyponatremia due to diuresis. Serial troponins negative. Limited echo was done shows EF 60% with mild concentric LVH. RVSP 47 mmHg with mild TR. It is consistent with diastolic heart failure but no significant change from previous echo. 06/25: IV Lasix drip discontinued and changed to intermittent 40 mg IV twice daily. Plan to discharge on Lasix oral tomorrow a.m. Discussed with the patient care coordinator. Talent Acquisition Specialist consult for dietary education for heart failure 2. Acute kidney injury on CKD stage IIIb secondary to diuretic, diabetic nephropathy and cardiorenal disease: Coordinator Of Online Programs was consulted for progression of kidney disease. Diuretic management. Hold spironolactone as potassium is elevated. 06/24: MARCELA most probably due to cardiorenal syndrome. Advised to continue Lasix drip for 1 more day. Negative fluid balance about 2 L. Avoid nephrotoxins. Renal ultrasound reported as normal. 06/25: Improvement in creatinine but BUN increased secondary to diuresis. 3 restrictive lung disease, obstructive sleep apnea: Patient had recent PFT in May 27 showed mild restrictive ventilatory defect with an disproportionate reduction in diffusing capacity, 37%. Decreased TLC 76% of predicted. Continue BiPAP. 4. Diabetes mellitus type 2, complicated with diabetic nephropathy and neuropathy: Glucose in the 250s. Insulin dosage adjusted. 5. Hypertension, anxiety and depression: Currently blood pressure is normal range. Home medication reconciliation done. Total time of the visit including total time spent in counseling or coordination of care, (more than 50% of the total time, spent in obtaining medical information from nurses and other ancillary care providers,explaining to the patient about labs, imaging, diagnosis and management), , review of labs and imaging is 30 minutes. Living will/advanced directive/end of life care: Patient does have living will or advanced directive. Her is power of prosecuting attorney for health. After discussion of benefits/risks procedures involved with full code, DNR CC arrest and DNR CC, the patient opted for DNR-CC Arrest with no intubation. Patient does not want hemodialysis. Patient does not want artificial life support including intubation, tube feed, ventilator and/chest compression, central venous catheter, vasopressor and DC shock if needed VTE prophylaxis: Heparin 500 subcutaneous. Clinical Impression(s) from Imaging Studies Chest X-Ray 06/23/20 08:11 IMPRESSION: Chronic interstitial changes, no superimposed acute pulmonary process Renal Ultrasound 06/23/20 14:32 IMPRESSION: Normal ultrasound of the kidneys and urinary bladder. Visit Charges Inpatient E&M: [id number] [facility] L3
[2020-06-25] MEDS: Furosemide 40 MG/4 ML Vial IV (17:05)
[2020-06-25] MEDS: Insulin Lispro 100 UNIT/ML INSULN.PEN 40 UNIT SC (17:05)
[2020-06-25 17:36] LABS: Bedside Glucose 169 mg/dL (70-110)
[2020-06-25] MEDS: Pramipexole Di-HCl 0.5 MG Tablet 1.5 MG PO (21:40)
[2020-06-25] MEDS: Atorvastatin Calcium 40 MG Tablet PO (21:41)
[2020-06-25 23:50] LABS: Bedside Glucose 134 mg/dL (70-110)
[2020-06-26] VITALS (8 sets, daily range): BP systolic 127–150; BP diastolic 57–66; PULSE 72–82; RESP 20; TEMP 36.3–36.6; O2SAT 95–100
[2020-06-26 07:06] LABS: Absolute Lymphocyte Count 1.42 X10^3/uL (0.83-4.51); Absolute Neutrophil Count 6.2 X10^3/uL (2.0-7.7); Basophil# 0.03 X10^3/uL; Basophil% 0.4 % (0-1); Eosinophil# 0.29 X10^3/uL; Eosinophils% 3.4 % (0-5); Hematocrit 37.3 % (37-47); Hemoglobin 12.1 g/dL (12.0-15.0); Lymphocyte # 1.42 X10^3/ul (0.83-4.51); Lymphocyte % 16.7 % (19-41); Mean Corp Hgb Conc 32.4 g/dL (32-36); Mean Corpuscular Hgb 30.6 pg (27.0-32.0); Mean Corpuscular Volume 94.4 fL (81-99); Mean Platelet Vol. 10.4 fl (6.2-12.0); Monocyte# 0.57 X10^3/uL; Monocyte% 6.7 % (0-10); NRBC Flagged by Analyzer 0 % (0-5); Neutrophil # 6.17 X10^3/uL (2.7-7.7); Neutrophil % 72.3 % (47-70); Platelet Count 206 K/mm3 (150-450); RBC Distribution Width SD 44.4 fl (35.1-43.9); Red Blood Count 3.95 M/mm3 (4.2-5.4); White Blood Count 8.5 K/mm3 (4.4-11.0)
[2020-06-26 07:54] LABS: Anion Gap 8 (5-15); BUN 97 mg/dL (7-18); BUN/Creat Ratio 52.4 RATIO (10-20); Chloride 96 mmol/L (98-107); Creatinine, Serum 1.85 mg/dL (0.55-1.02); EST Glomerular Filtration Rate 29 mL/min (>60); Est Glom Filt Rate - Afr Amer 35 mL/min (>60); Estimated Creatinine Clearance 26.88 ml/min; Glucose 280 mg/dL (74-106); Potassium 4.3 mmol/L (3.5-5.1); Sodium Level 137 mmol/L (136-145)
[2020-06-26] MEDS: Insulin Lispro 100 UNIT/ML INSULN.PEN 40 UNIT SC ×2 (08:59→11:37)
[2020-06-26] MEDS: Aspirin 81 MG TAB.CHEW PO (08:59)
[2020-06-26] MEDS: Heparin Injection (Vial) 5,000 UNIT/ML VIAL 5000 UNIT SC (09:00)
[2020-06-26] MEDS: Tolterodine Tartrate 2 MG CAP.SA PO (09:00)
[2020-06-26] MEDS: Carvedilol 12.5 MG Tablet PO (09:00)
[2020-06-26] MEDS: Allopurinol 100 MG Tablet 200 MG PO (09:00)
[2020-06-26] MEDS: buPROPion (XL) 150 MG TABLET.XL PO (09:01)
[2020-06-26] MEDS: Gabapentin 600 MG Tablet PO (09:01)
[2020-06-26] MEDS: 0.9% Saline Lock 10 ML Syringe IV (09:01)
[2020-06-26 09:11] LABS: Bedside Glucose 298 mg/dL (70-110)
[2020-06-26] MEDS: Furosemide 40 MG Tablet PO (11:31)
[2020-06-26 11:40] LABS: Bedside Glucose 353 mg/dL (70-110)
--- NOTE | 2020-06-26 12:19 | CASEMGMT ---
Addendum entered by Michelle Johnson 06/26/20 14:33: DC instructions faxed at this time to [facility]. Original Note: TC to [facility]. Made aware pt is dc'ing today and faxed referral info. Will fax dc instructions once available.
--- NOTE | 2020-06-26 13:47 | CON.PCM.PA_ITS ---
Assessment & Plan Assessment/Plan (1) Dyspnea: QUALIFIERS: Dyspnea type: dyspnea on exertion Qualified Code(s): R06.00 - Dyspnea, unspecified (2) Debility: (3) Chronic diastolic (congestive) heart failure: (4) Secondary pulmonary arterial hypertension: (5) Essential (primary) hypertension: (6) Sleep apnea: QUALIFIERS: Sleep apnea type: obstructive Qualified Code(s): G47.33 - Obstructive sleep apnea (adult) (pediatric) (7) Chronic respiratory failure with hypoxia: (8) Former tobacco use: (9) Morbid obesity: (10) Diabetes mellitus, type II: QUALIFIERS: Diabetes mellitus complication status: with other specified complication Diabetes mellitus halfway insulin use: with middle or intermediate school principal use Qualified Code(s): E11.69 - Type 2 diabetes mellitus with other specified complication; Z79.4 - [facility] (current) use of insulin (11) CKD (chronic kidney disease), stage III: QUALIFIERS: Chronic kidney disease stage 3 subtype: unspecified whether 3a or 3b Qualified Code(s): N18.30 - Chronic kidney disease, stage 3 unspecified (12) HLD (hyperlipidemia): QUALIFIERS: Hyperlipidemia type: unspecified Qualified Code(s): E78.5 - Hyperlipidemia, unspecified PLAN: 64-year-old female with multiple comorbidities, chronic dyspnea on 3 L of home oxygen supplementation, seen today for initial palliative care consultation secondary to her significant decrease in ability to perform ADLs, and CHF with oxygen dependence, dyspnea, and functional decline. ?Patient admits having a hard time staying compliant with diet and medication recommendations in the setting of fairly new diagnoses of CHF and COPD, as well as long-standing T2DM. Has significant ROWLEY. Also morbidly obese. -No additional medication recommendations at this time. ?We will have our nurse follow-up next week, goal is to avoid rehospitalization, improve symptoms, and improve quality of life. -call out to daughter to arrange visits Thank you for the opportunity to participate in this patient's care, please do not hesitate to contact [facility] with any further questions or concerns. Palliative direct line is [phone]. We will have RN follow up approximately 3 days after discharge to home and will discuss palliative services further at that time. Greater than 50% of F2F visit dedicated to education and counseling of palliative care services, medications, comorbid conditions and potential assistance with management, and plan of care moving forward. Start time: 1335 End time: 1430 HPI Consult Data Date of Consult: 06/26/20 HPI Narrative HPI Narrative: BEVERLY ATKINS, is a 64 F, PMH as below, who presented to [facility] 06/23/2020 with complaints of increased shortness of breath, which has been ongoing since November 2019. Patient has had multiple admissions, last one in March where she was treated for an acute CHF exacerbation. She developed MARCELA with diuresis, so was put on Bumex. She has been following with Dr. Reynoso. Patient has a baseline oxygen requirement of 3 to 4 L. Patient is a former smoker and quit in 2004. Echocardiogram in March 2020 showed EF of 70%, mildly enlarged left atrium, mild mitral regurgitation, RVSP estimated at 56 mmHg (C/W severe pulmonary hypertension). Repeat limited echocardiogram done 06/24/2020 which showed EF of 60%, mild concentric LVH, RVSP estimated at 47 mmHg with mild TR. There was no significant change from previous echo. She was placed on an IV Lasix drip. Nephrology was consulted for progression of her renal disease and management of diuresis. [employer] Process Cheese was also consulted for dietary education related to her CHF. Spironolactone was held secondary to hyperkalemia. Renal ultrasound was apparently normal. Beverly follows with [facility] [place] Dr. Braswell. PFTs in May 2020 that showed a mild restrictive ventilatory defect with disproportionate reduction in diffusing capacity at 37%. She is on BiPAP therapy. Patient is a DNR CCA with no intubation. She does not want hemodialysis at this point. Her last visit with Dr. Reynoso was on June 10, at which time he added spironolactone to her regimen for her dyspnea and uncontrolled hypertension. Plan is for discharge 06/26/20 to home with [facility] for home health care. Patient uses [employer] for DME. Pharmacy is [facility] in [place]. Her POA is her daughter, Oksana Felix. Spouse is Gio Atkins. Patient lives in a single- story home with 3 steps to enter with a rail. Reports being independent with ADLs however cannot walk. States she drives if she wants to. DME in the home include a wheelchair, walker, Rollator, and shower chair. Discussed palliative services, multiple comorbidities, medications, shortness of breath, debility. Patient is looking forward to therapy through home health. States her daughter assist her regularly but works a full-time job. Liaison has contacted daughter to get her approval, otherwise patient is agreeable to services. 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, with long- term current use of insulin Home Medications aspirin 81 mg PO DAILY@0800 10/27/14 [History Last Taken 06/22/20 08:00] Gabapentin 600 mg PO Q4H PRN PRN 04/02/20 [History Last Taken Unknown] allopurinol 200 mg PO DAILYCM 04/02/20 [History Last Taken 06/22/20 08:00] bupropion HCl 150 mg PO DAILY 04/02/20 [History Last Taken 06/22/20 08:00] carvedilol 12.5 mg PO BID 04/02/20 [History Last Taken 06/22/20 22:00] insulin detemir U-100 60 units SC BID 04/02/20 [History Last Taken 06/22/20 20:00] ropinirole 8 mg PO QHS 04/02/20 [History Last Taken 06/22/20 22:00] Fluoxetine HCl 80 mg PO DAILY 04/03/20 [History Last Taken 06/22/20 08:00] colchicine 0.6 mg PO PRN PRN 04/03/20 [History Last Taken Unknown] oxybutynin chloride 5 mg PO DAILY 04/03/20 [History Last Taken 06/22/20 08:00] albuterol sulfate 2 puff INHALATION UD PRN #1 inhaler 04/05/20 [Rx Last Taken Unknown] amlodipine 10 mg tablet 10 mg PO DAILY 04/22/20 [History Last Taken 06/22/20 08:00] triamcinolone acetonide 0.1 % dental paste 1 applic DENTAL BID 04/22/20 [History Last Taken Unknown] atorvastatin 40 mg PO QHS 06/23/20 [History Last Taken 06/22/20 22:00] glipizide 5 mg PO DAILY 06/23/20 [History Last Taken 06/22/20 08:00] insulin aspart U-100 40 units SC TIDCM 06/23/20 [History Last Taken 06/22/20 17:00] ergocalciferol (vitamin D2) [Vitamin D2] 50,000 unit PO TU #4 cap 06/26/20 [Rx Last Taken Unknown] furosemide 40 mg PO BID@1000,1800 #60 tab 06/26/20 [Rx Last Taken Unknown] sennosides-docusate sodium [Stool Softener-Stimulant Laxat] 2 tab PO BID PRN PRN #0 tab 06/26/20 [Rx Last Taken Unknown] Allergy/AdvReac Type Severity Reaction Status Date / Time latex Allergy Swelling Verified 06/23/20 07:50 oxycodone Allergy Shortness Verified 06/23/20 07:50 of breath Penicillins Allergy Unknown Verified 06/23/20 07:50 pregabalin [From Lyrica] Allergy Anaphylaxis Verified 06/23/20 07:50 Family History Mother Diabetes Cancer Colon Father Diabetes CVA (cerebral vascular accident) Surgical History Amputation toe H/O: hysterectomy History of appendectomy History of cholecystectomy Social History (Updated 06/23/20 @ 11:22 by Daly Mckeon) household members: spouse housing: house number of children: 2 financial difficulty paying for basics: not applicable service: No current occupational status: disabled current occupational exposures/hazards: No pets and animals: Yes (dog) leisure activities: other Smoking Status: Former smoker quit date: 02/07/04 ROS Constitutional Constitutional: Reports fatigue and weakness Eyes Eyes: Denies change in vision ENT HEENT: Denies hoarseness or sore throat Respiratory/Chest Respiratory/Chest: Reports dry cough and dyspnea on exertion; Denies wheezing Gastrointestinal Gastrointestinal: Reports bloating; Denies abdominal pain, constipation, diarrhea, nausea or vomiting Genitourinary Genitourinary: Reports none Musculoskeletal Musculoskeletal: Reports arthralgias, difficulty walking, muscle weakness, numbness and tingling Integumentary Integumentary: Denies lesions Neurologic Neurologic: Reports tremor(s) and other Details: resting tremor, new per pt ; Denies focal weakness Psychiatric Psychiatric: Reports anxiety and depression Hematologic/Lymphatic Hematologic/Lymphatic: Reports anemia and easy bruising Allergic/Immunologic Allergic/Immunologic: Reports none Physical Exam Const alert, oriented x3 and no apparent distress General Appearance: cooperative Eyes General Eye: normal appearance of both eyes Neck supple General: trachea midline and other large neck circumference Resp Effort and Inspection: able to speak in complete sentences Auscultation: clear to auscultation bilaterally and diminished lung sounds Cardio regular rate, regular rhythm, S1 normal heart sound and S2 normal heart sound GI soft to palpation and non-tender GI Narrative: obese Extremity General Extremity: edema bilateral lower extremity; Negative for cyanosis Skin no rashes or lesions noted General Skin Exam: ecchymosis Neuro oriented x3, CN's II-XII intact bilaterally and moves all extremities Psych Attitude: calm and engaged Speech: normal speech Mood & Affect: anxious
--- NOTE | 2020-06-26 14:17 | PCM.DC ---
Discharge Instructions Diet Discharge Diet: Low fat / Low cholesterol, 1800 Calorie Control Diet, 8 Cup Fluid Restriction, 2000 mg Sodium Diet and - (Fluid restriction ) Activity Discharge Activity: Return to Normal Activity and May Not Drive Dressing / Incision Call your doctor if you observe: Fever of 101 or Higher, Coldness, Increased Pain, Numbness or Tingling, Change in Color, Inability to urinate, Inability to have a bowel movement, Using more than one pad per hour, Shortness of breath, Dizziness, Fainting spells, Swelling in the ankles, Chest pain, Prolonged hiccupping, Increased palpitations (irregular heartbeat), Calf discomfort and Uncontrolled pain Follow Up Care Test Results: Test results from this visit will be discussed in further detail at your follow-up appointment, if applicable. Discharge Plan Admission Admit Date/Time: 06/23/20 12:52 Primary Reason for Your Visit: CHF exacerbation Attending Provider: Talha Chamberlain Primary Care Provider: Paige Gu Consulting Providers: Mario Salas Instructions Patient Instructions: ED Heart Failure, Congestive (CHF) Discharge Orders/Prescriptions Prescriptions: New furosemide 40 mg Tablet 40 mg PO BID@1000,1800 Qty: 60 RF: 0 sennosides-docusate sodium [Stool Softener-Stimulant Laxat] 8.6-50 mg Tablet 2 tab PO BID PRN PRN (Reason: Constipation) Qty: 0 RF: 0 ergocalciferol (vitamin D2) [Vitamin D2] 1,250 mcg (50,000 unit) Capsule 50,000 unit PO TU Qty: 4 RF: 0 Continued triamcinolone acetonide 0.1 % paste 1 applic DENTAL BID RF: 0 amlodipine 10 mg tablet 10 mg PO DAILY RF: 0 aspirin 81 MG tablet,chewable 81 mg PO DAILY@0800 RF: 0 insulin detemir U-100 100 UNITS/ML insulin pen 60 units SC BID RF: 0 Gabapentin 600 MG tablet 600 mg PO Q4H PRN PRN (Reason: Pain Score 1-10) RF: 0 carvedilol 6.25 MG tablet 12.5 mg PO BID RF: 0 allopurinol 100 MG tablet 200 mg PO DAILYCM RF: 0 ropinirole 4 MG tablet 8 mg PO QHS RF: 0 bupropion HCl 150 MG tablet extended release 24 hr 150 mg PO DAILY RF: 0 Fluoxetine HCl 80 mg PO DAILY RF: 0 oxybutynin chloride 5 MG tablet extended release 24hr 5 mg PO DAILY RF: 0 colchicine 0.6 MG tablet 0.6 mg PO PRN PRN (Reason: gout) RF: 0 albuterol sulfate 1 PUFF inhaler 2 puff INHALATION UD PRN (Reason: Cough) Qty: 1 RF: 0 glipizide 5 mg Tablet Extended Release 24hr 5 mg PO DAILY RF: 0 atorvastatin 40 MG tablet 40 mg PO QHS RF: 0 insulin aspart U-100 100 UNITS/ML insulin pen 40 units SC TIDCM RF: 0 Discontinued bumetanide 2 mg tablet 2 mg PO DAILY Qty: 90 RF: 3 cholecalciferol (vitamin D3) 1,000 UNIT tablet 5,000 unit PO TU RF: 0 spironolactone 25 mg tablet 25 mg PO DAILY RF: 0 Referrals / Follow Up: Paige Gu DO [Primary Care Provider] - Disposition Disposition (needs filled in before D/C Order can be placed): Home Health Service
--- NOTE | 2020-06-26 14:27 | DS.PCM_ITS ---
Providers Date of Admission: 06/23/20 Primary Care Physician: Dr. Paige Gu DO Consultations 06/23/20 12:57 Consult: Nephrology Routine Consulting Provider: Mario Salas Reason for Consult: marcela on ckd stage 4; Heart failure diuretic management EMERGENT Consult: No MD Notified: Yes Date Notified:: 06/23/20 Time Notified: 13:01 Method of Notification: Answering Service Reason For Visit: ACUTE RECURRENT CONGESTIVE HEART FAILURE, DYSPNEA Diagnosis Discharge Diagnosis (1) Dyspnea: Status: Chronic Code(s): R06.00 - Dyspnea, unspecified Qualifiers: Dyspnea type: dyspnea on exertion Qualified Code(s): R06.00 - Dyspnea, unspecified (2) Debility: Status: Acute Code(s): R53.81 - Other malaise (3) Chronic diastolic (congestive) heart failure: Status: Chronic Code(s): I50.32 - Chronic diastolic (congestive) heart failure (4) Secondary pulmonary arterial hypertension: Status: Chronic Code(s): I27.21 - Secondary pulmonary arterial hypertension (5) Essential (primary) hypertension: Status: Chronic Code(s): I10 - Essential (primary) hypertension (6) Sleep apnea: Status: Chronic Code(s): G47.30 - Sleep apnea, unspecified Qualifiers: Sleep apnea type: obstructive Qualified Code(s): G47.33 - Obstructive sleep apnea (adult) (pediatric) (7) Chronic respiratory failure with hypoxia: Status: Chronic Code(s): J96.11 - Chronic respiratory failure with hypoxia (8) Former tobacco use: Status: Chronic Code(s): Z87.891 - Personal history of nicotine dependence (9) Morbid obesity: Status: Chronic Code(s): E66.01 - Morbid (severe) obesity due to excess calories (10) Diabetes mellitus, type II: Status: Chronic Code(s): E11.9 - Type 2 diabetes mellitus without complications Qualifiers: Diabetes mellitus complication status: with other specified complication Diabetes mellitus entry level electrician insulin use: with entry level electrician use Qualified Code(s): E11.69 - Type 2 diabetes mellitus with other specified complication; Z79.4 - radio station engineer (current) use of insulin (11) CKD (chronic kidney disease), stage III: Status: Chronic Code(s): N18.30 - Chronic kidney disease, stage 3 unspecified Qualifiers: Chronic kidney disease stage 3 subtype: unspecified whether 3a or 3b Qualified Code(s): N18.30 - Chronic kidney disease, stage 3 unspecified (12) HLD (hyperlipidemia): Status: Chronic Code(s): E78.5 - Hyperlipidemia, unspecified Qualifiers: Hyperlipidemia type: unspecified Qualified Code(s): E78.5 - Hyperl ipidemia, unspecified Medications at Discharge Home Medications aspirin 81 mg PO DAILY@0800 10/27/14 Gabapentin 600 mg PO Q4H PRN PRN 04/02/20 allopurinol 200 mg PO DAILYCM 04/02/20 bupropion HCl 150 mg PO DAILY 04/02/20 carvedilol 12.5 mg PO BID 04/02/20 insulin detemir U-100 60 units SC BID 04/02/20 ropinirole 8 mg PO QHS 04/02/20 Fluoxetine HCl 80 mg PO DAILY 04/03/20 colchicine 0.6 mg PO PRN PRN 04/03/20 oxybutynin chloride 5 mg PO DAILY 04/03/20 albuterol sulfate 2 puff INHALATION UD PRN #1 inhaler 04/05/20 amlodipine 10 mg tablet 10 mg PO DAILY 04/22/20 triamcinolone acetonide 0.1 % dental paste 1 applic DENTAL BID 04/22/20 atorvastatin 40 mg PO QHS 06/23/20 glipizide 5 mg PO DAILY 06/23/20 insulin aspart U-100 40 units SC TIDCM 06/23/20 ergocalciferol (vitamin D2) [Vitamin D2] 50,000 unit PO TU #4 cap 06/26/20 furosemide 40 mg PO BID@1000,1800 #60 tab 06/26/20 sennosides-docusate sodium [Stool Softener-Stimulant Laxat] 2 tab PO BID PRN PRN #0 tab 06/26/20 Hospital Course Summary of Care Provided Hospital Course: KENDALL BUTLER, is a 64 F who presents to the ER with progressive worsening shortness of breath since November 2019, dyspnea at rest, anasarca. Chest x-ray immediately reviewed shows chronic interstitial changes with underventilated image.? EKG shows sinus rhythm at 81 bpm, QTC 455 ms. 1.? Acute on chronic diastolic heart failure, severe pulmonary hypertension with chronic hypoxic respiratory failure: Patient is being admitted in PCU.? Lasix 40 mg IV in ED and started on Lasix drip.? Metolazone 5 mg daily.? BNP 16.4 but may be falsely negative as patient is morbidly obese. ? She recently had an echo in March 29 showed EF 70%, LA mildly enlarged, mild MR, RVSP 56 mg consistent with severe pulmonary hypertension.? Heart failure core measures including intake and output, fluid restriction less than 1500 mL, daily weight monitoring, kidney and electrolytes monitoring.? Continue patient's Coreg and atorvastatin. Fasting profile within normal limits except HDL 34.? TSH 0.75.? Mild hyponatremi a due to diuresis.? Serial troponins negative.? Limited echo was done shows EF 60% with mild concentric LVH.? RVSP 47 mmHg with mild TR.? It is consistent with diastolic heart failure but no significant change from previous echo. Lasix drip was discontinued on 06/25 and changed to intermittent Lasix and discharged on 40 mg twice daily and potassium supplement. ? Discussed with the rotary shear operator.? Housing Installer consult for dietary education for heart failure. 2.? Acute kidney injury on CKD stage IIIb secondary to diuretic, diabetic nephropathy and cardiorenal disease: Manager [employer] was consulted for progression of kidney disease.? Diuretic management.? Hold spironolactone as potassium is elevated. MARCELA most probably due to cardiorenal syndrome.? Avoid nephrotoxins.? Renal ultrasound reported as normal. Improvement in creatinine but BUN increased secondary to diuresis. 3 restrictive lung disease, obstructive sleep apnea: Patient had recent PFT in May 27 showed mild restrictive ventilatory defect with an disproportionate reduction in diffusing capacity, 37%.? Decreased TLC 76% of predicted. Continue BiPAP. 4.? Diabetes mellitus type 2, complicated with diabetic nephropathy and neur opathy: Glucose in the 250s.? Insulin dosage adjusted. 5.? Hypertension, anxiety and depression: Currently blood pressure is normal range.? Home medication reconciliation done. Total time of the visit including total time spent in counseling or coordination of care, (more than 50% of the total time, spent in obtaining medical information from nurses and other ancillary care providers,explaining to the patient about labs, imaging, diagnosis and management), , review of labs and imaging is? 30 minutes. Patient is DNR CC arrest. Palliative care consult was done. Advised to follow- up with palliative nursing at home. Physical Exam Narrative medical device sales representative strip sinus rhythm with PVCs. General: Alert, Oriented x3, Cooperative, morbid obesity BMI 62.2 daily per meter square. Sitting comfortably in the chair. HEENT: Atraumatic, PERRLA, EOMI, Normocephalic Oral: No Gingival or Mucosal Lesions/ Ulcerations Neck: Supple, No JVD, Negative Carotid Bruits Lungs: Air entry diminished in bilateral lung bases. No crepitations. No orthopnea. Cardiovascular: Regular rate, Regular Rhythm, Normal S1, Normal S2, No murmurs Abdomen: Bowel Sounds Present, Soft, Non Tender, mild ventral hernia. Abdominal distention/ascites : Decreased urine output. No renal angle tenderness. No suprapubic tenderness. Extremities: Bilateral lower extremity edema, Capillary Refill Less than 3 Seconds Skin: No rashes, No breakdown Musculoskeletal: ROM restricted. Diffuse degenerative arthritis of lower extremity. Neurological: Cranial nerves II-XII grossly intact, Deep Tendon Reflexes 2+/4 Psych/Mental Status: Normal Affect, Appropriate. ABG / Lab / Microbiology Data Result Diagrams: 06/26/20 06:22 06/26/20 06:22 Laboratory: Laboratory Results - last 24 hr 06/25/20 06/25/20 06/26/20 17:03 21:38 06:22 WBC 8.5 RBC 3.95 L Hgb 12.1 Hct 37.3 MCV 94.4 MCH 30.6 MCHC 32.4 RDW Std Deviation 44.4 H RDW Coeff of Varun 13.0 Plt Count 206 MPV 10.4 Immature Gran % (Auto) 0.500 Neut % (Auto) 72.3 H Lymph % (Auto) 16.7 L [place] % (Auto) 6.7 Eos % (Auto) 3.4 Baso % (Auto) 0.4 Absolute Neuts (auto) 6.2 Absolute Lymphs (auto) 1.42 Nucleated RBC % 0 Sodium Potassium Chloride Carbon Dioxide Anion Gap BUN Creatinine Estim Creat Clear Calc Est GFR (MDRD) Af Amer Est GFR (MDRD) Non-Af BUN/Creatinine Ratio Glucose Calcium Magnesium POC Glucose 169 H 134 H 06/26/20 06/26/20 06/26/20 06:22 08:58 11:31 WBC RBC Hgb Hct MCV MCH MCHC RDW Std Deviation RDW Coeff of Varun Plt Count MPV Immature Gran % (Auto) Neut % (Auto) Lymph % (Auto) [place]lette % (Auto) Eos % (Auto) Baso % (Auto) Absolute Neuts (auto) Absolute Lymphs (auto) Nucleated RBC % Sodium 137 Potassium 4.3 Chloride 96 L Carbon Dioxide 33.0 H Anion Gap 8 BUN 97 H Creatinine 1.85 H Estim Creat Clear Calc 26.88 Est GFR (MDRD) Af Amer 35 L Est GFR (MDRD) Non-Af 29 L BUN/Creatinine Ratio 52.4 H Glucose 280 H Calcium 9.0 Magnesium 2.0 POC Glucose 298 H 353 H D/C Instructions Discharge Diet: Low fat / Low cholesterol, 1800 Calorie Control Diet, 8 Cup Fluid Restriction, 2000 mg Sodium Diet and - (Fluid restriction ) Discharge Activity: Return to Normal Activity and May Not Drive Call your doctor if you observe: Fever of 101 or Higher, Coldness, Increased Pain, Numbness or Tingling, Change in Color, Inability to urinate, Inability to have a bowel movement, Using more than one pad per hour, Shortness of breath, Dizziness, Fainting spells, Swelling in the ankles, Chest pain, Prolonged hiccupping, Increased palpitations (irregular heartbeat), Calf discomfort and Uncontrolled pain Meaningful Use Info Meaningful Use Diagnoses (Choose all that apply): CHF CHF AMY/ARB ordered at discharge?: No Reason AMY/ARB not ordered?: Worsening renal disease Documented LVEF (%): 60 Discharge Plan Admission Admit Date/Time: 06/23/20 12:52 Primary Reason for Your Visit: CHF exacerbation Attending Provider: Talha Chamberlain Primary Care Provider: Paige Gu Consulting Providers: Mario Salas Instructions Patient Instructions: ED Heart Failure, Congestive (CHF) Additional Instructions / Restrictions: Patient Problems: Altered Health Status related to Hospitalization Patient Goals: *Optimal Level of Health *Keep Appointments *Medication Compliance *Remain SafeRhythm: EKG: ECHO: Stress Test: Cardiac Cath: PCI: CT Surgery: Holter monitor: EPS: PPM: CXR: Chest CT Scan: Discharge Orders/Prescriptions Prescriptions: New furosemide 40 mg Tablet 40 mg PO BID@1000,1800 Qty: 60 RF: 0 sennosides-docusate sodium [Stool Softener-Stimulant Laxat] 8.6-50 mg Tablet 2 tab PO BID PRN PRN (Reason: Constipation) Qty: 0 RF: 0 ergocalciferol (vitamin D2) [Vitamin D2] 1,250 mcg (50,000 unit) Capsule 50,000 unit PO TU Qty: 4 RF: 0 Continued triamcinolone acetonide 0.1 % paste 1 applic DENTAL BID RF: 0 amlodipine 10 mg tablet 10 mg PO DAILY RF: 0 aspirin 81 MG tablet,chewable 81 mg PO DAILY@0800 RF: 0 insulin detemir U-100 100 UNITS/ML insulin pen 60 units SC BID RF: 0 Gabapentin 600 MG tablet 600 mg PO Q4H PRN PRN (Reason: Pain Score 1-10) RF: 0 carvedilol 6.25 MG tablet 12.5 mg PO BID RF: 0 allopurinol 100 MG tablet 200 mg PO DAILYCM RF: 0 ropinirole 4 MG tablet 8 mg PO QHS RF: 0 bupropion HCl 150 MG tablet extended release 24 hr 150 mg PO DAILY RF: 0 Fluoxetine HCl 80 mg PO DAILY RF: 0 oxybutynin chloride 5 MG tablet extended release 24hr 5 mg PO DAILY RF: 0 colchicine 0.6 MG tablet 0.6 mg PO PRN PRN (Reason: gout) RF: 0 albuterol sulfate 1 PUFF inhaler 2 puff INHALATION UD PRN (Reason: Cough) Qty: 1 RF: 0 glipizide 5 mg Tablet Extended Release 24hr 5 mg PO DAILY RF: 0 atorvastatin 40 MG tablet 40 mg PO QHS RF: 0 insulin aspart U-100 100 UNITS/ML insulin pen 40 units SC TIDCM RF: 0 Discontinued bumetanide 2 mg tablet 2 mg PO DAILY Qty: 90 RF: 3 cholecalciferol (vitamin D3) 1,000 UNIT tablet 5,000 unit PO TU RF: 0 spironolactone 25 mg tablet 25 mg PO DAILY RF: 0 Referrals / Follow Up: Paige Gu DO [Primary Care Provider] - 07/01/20 9:40 am Disposition Disposition (needs filled in before D/C Order can be placed): Home Health Service Visit Charges Inpatient E&M: 34578 Disch Hosp
--- NOTE | 2020-06-26 14:59 | PHA.DC.MC ---
Pharmacy Service has performed discharge medication reconciliation and counseling for this patient. 1. FUROSEMIDE 40MG PO BID 2. SENNA/DOCUSATE 2T PO BID PRN CONSTIPATION 3. ERGOCALCIFEROL 50,000UNITS PO ON TUESDAYS The patient's discharge medication list was reviewed for discrepancies and discrepancies were resolved. Home Medications aspirin 81 mg PO DAILY@0800 10/27/14 Gabapentin 600 mg PO Q4H PRN PRN 04/02/20 allopurinol 200 mg PO DAILYCM 04/02/20 bupropion HCl 150 mg PO DAILY 04/02/20 carvedilol 12.5 mg PO BID 04/02/20 insulin detemir U-100 60 units SC BID 04/02/20 ropinirole 8 mg PO QHS 04/02/20 Fluoxetine HCl 80 mg PO DAILY 04/03/20 colchicine 0.6 mg PO PRN PRN 04/03/20 oxybutynin chloride 5 mg PO DAILY 04/03/20 albuterol sulfate 2 puff INHALATION UD PRN #1 inhaler 04/05/20 amlodipine 10 mg tablet 10 mg PO DAILY 04/22/20 triamcinolone acetonide 0.1 % dental paste 1 applic DENTAL BID 04/22/20 atorvastatin 40 mg PO QHS 06/23/20 glipizide 5 mg PO DAILY 06/23/20 insulin aspart U-100 40 units SC TIDCM 06/23/20 ergocalciferol (vitamin D2) [Vitamin D2] 50,000 unit PO TU #4 cap 06/26/20 furosemide 40 mg PO BID@1000,1800 #60 tab 06/26/20 sennosides-docusate sodium [Stool Softener-Stimulant Laxat] 2 tab PO BID PRN PRN #0 tab 06/26/20 The patient was counseled on the following discharge medications and changes in medications for homegoing were reviewed. The Reason for Use, instructions for use, and potential side effects were reviewed for all new medications. The patient's questions regarding all of their medications were answered. The patient was able to verbally demonstrate an understanding of their discharge medications. Patient counseled by pharmacy teacher
--- NOTE | 2020-06-29 14:01 | CASEMGMT ---
RN CM Discharge Follow Up Phone Call: BEN: Huma Strata: 3 Call Date: 06.29.20 Discharge Date: 06.26.20 Time of Call:1400 Duration:<1 min Admitting Dx: CHF exac RN JAYLON attempted to complete follow up phone call after recent hospitalization. Received identified voicemail, left message with return call back information.
== END 2020-06-26 15:30 | disposition home health service (06) | DRG 291 ==
LOC: ED 08:56 → PCU 13:10
PROVIDERS: Internal Medicine; Admitting Provider Internal Medicine; Emergency Provider Emergency Medicine; PCP Family Medicine; Visit Provider Internal Medicine
DX: I13.0 Hypertensive heart and chronic kidney disease with heart failure and stage 1 through stage 4 chronic kidney disease, or unspecified chronic kidney disease (principal); I50.33 Acute on chronic diastolic (congestive) heart failure; J96.11 Chronic respiratory failure with hypoxia; N17.9 Acute kidney failure, unspecified; Z68.44 Body mass index [BMI] 60.0-69.9, adult; I27.21 Secondary pulmonary arterial hypertension; G47.33 Obstructive sleep apnea (adult) (pediatric); E66.01 Morbid (severe) obesity due to excess calories; E78.5 Hyperlipidemia, unspecified; J44.9 Chronic obstructive pulmonary disease, unspecified; E11.42 Type 2 diabetes mellitus with diabetic polyneuropathy; N18.32 Chronic kidney disease, stage 3b; E87.5 Hyperkalemia; E11.22 Type 2 diabetes mellitus with diabetic chronic kidney disease; F32.9 Major depressive disorder, single episode, unspecified; F41.9 Anxiety disorder, unspecified; G89.29 Other chronic pain; Z79.899 Other long term (current) drug therapy; Z87.891 Personal history of nicotine dependence; Z79.82 Long term (current) use of aspirin; Z79.4 Long term (current) use of insulin
CPT/HCPCS: 36415; 71045; 76770; 80048; 80061; 81001; 82570; 82962; 83735; 83880; 84100; 84156; 84443; 84484; 84540; 85025; 93005; 93308; 97110; 97162; 97166; 97530; 97535; 97802; 99251; 99285; Q9957; A4216; C8924; G0463; J1940

== ENCOUNTER → 2020-07-23 13:16 | Outpatient (CLI) | payer OTHER, SELFPAY ==
[2020-04-22 11:13] VITALS: BMI 57.2
[2020-06-23 10:30] VITALS: BMI 62.8
[2020-07-23 13:30] VITALS: PULSE 81; PULSE 86; PULSE 88; PULSE 91; PULSE 92; PULSE 93; PULSE 95; PULSE 96; O2SAT 87; O2SAT 88; O2SAT 93; O2SAT 94; O2SAT 95
--- NOTE | 2020-07-23 14:02 | CPS ---
Patient arrived on 3L pulse dose O2. Patient's RA pulse ox was 93%. Patient was started on RA and at one min SpO2 dropped to 87%. 3L pulse dose was added. Patient desaturated at the 2 min candace to 88% so the O2 was turned up to 4L pulse dose. Patient walks very minimally at home and only walked 2 laps but that is more than she walks on a daily basis. Ramila Chandler RRT-SDS
--- NOTE | 2020-07-24 08:20 | WT_ITS ---
PSN 6 Minute Walk Test 6 Minute Walk Test 6 Minute Walk Test: 6 Minute Walk Test PSN:6-Minute Walk Test Start: 07/23/20 13:53 Freq: Status: Active Protocol: [id number] Document 07/23/20 13:30 TIFFANY (Rec: 07/23/20 14:07 INESA [id number]) 6 Minute Walk Test Date Performed 07/23/20 Time Performed 12:30 Height 5 ft 4 in Weight: 350 lb Weight in Pounds 350.[address]: Damon Barswell Assistive device used: None Pre-test Oxygen Delivery Method Room Air Pulse Ox (%) 93 Pulse Rate (60-100 beats/min) 86 Dyspnea Duncan Scale (0-10) 0 Exertion Duncan Scale (6-20) 6 1st minute Oxygen Delivery Method Room Air Pulse Ox (%) 87 Pulse Rate (60-100 beats/min) 95 Dyspnea Duncan Scale (0-10) 4 Exertion Duncan Scale (6-20) 16 2nd minute Oxygen Flow Rate (L/min) (L/min) 3 Oxygen Delivery Method Nasal Cannula Pulse Ox (%) 88 Pulse Rate (60-100 beats/min) 96 Dyspnea Duncan Scale (0-10) 4 Exertion Duncan Scale (6-20) 16 3rd minute Oxygen Flow Rate (L/min) (L/min) 4 Oxygen Delivery Method Nasal Cannula Pulse Ox (%) 93 Pulse Rate (60-100 beats/min) 88 4th minute Oxygen Flow Rate (L/min) (L/min) 4 Oxygen Delivery Method Nasal Cannula Pulse Ox (%) 95 Pulse Rate (60-100 beats/min) 92 5th minute Oxygen Flow Rate (L/min) (L/min) 4 Oxygen Delivery Method Nasal Cannula Pulse Ox (%) 95 Pulse Rate (60-100 beats/min) 91 6th minute Oxygen Flow Rate (L/min) (L/min) 4 Oxygen Delivery Method Nasal Cannula Pulse Ox (%) 94 Pulse Rate (60-100 beats/min) 93 Post-test Oxygen Flow Rate (L/min) (L/min) 4 Oxygen Delivery Method Nasal Cannula Pulse Ox (%) 93 Pulse Rate (60-100 beats/min) 81 Full Laps Walked 2 Partial Lap, Number of Tiles Walked 0 Total Distance Walked (ft) 118 07/23/20 14:02 Cardiopulmonary Services by Ramila Rose Patient arrived on 3L pulse dose O2. Patient's RA pulse ox was 93%. Patient was started on RA and at one min SpO2 dropped to 87%. 3L pulse dose was added. Patient desaturated at the 2 min candace to 88% so the O2 was turned up to 4L pulse dose. Patient walks very minimally at home and only walked 2 laps but that is more than she walks on a daily basis. Ramlia Chandler HOOKER OPERATOR-SDS Initialized on 07/23/20 14:02 - END OF NOTE Interpretation Interpretation: The patient ambulated 118 feet over the course of 6 minutes beginning on room air with the use of a push wheelchair. Pretesting oxygen saturation was noted to be 93% on room air. With ambulation, the patient desaturated on several occasions requiring the initiation and subsequent escalation of supplemental oxygen to 4 L/min pulse dose to maintain appropriate saturations. Recommendations Recommendations: 4 L/min of pulse dose supplemental oxygen should be utilized with exertion.
== END ==
PROVIDERS: PCP Family Medicine; Referring Provider Internal Medicine Critical Care Medicine; Visit Provider Internal Medicine Critical Care Medicine
DX: J96.11 Chronic respiratory failure with hypoxia (principal)
CPT/HCPCS: 94618

== ENCOUNTER → 2020-08-06 09:20 | Outpatient (CLI) | payer OTHER, SELFPAY ==
[2020-08-06 07:42] VITALS: BMI 60.0
[2020-08-06 10:07] LABS: Hemoglobin A1c 10.3 % (3.8-5.6)
[2020-08-06 10:37] LABS: Anion Gap 7 (5-15); BUN 61 mg/dL (7-18); BUN/Creat Ratio 32.1 RATIO (10-20); Calcium,Total 8.4 mg/dL (8.5-10.1); Chloride 103 mmol/L (98-107); EST Glomerular Filtration Rate 28 mL/min (>60); Est Glom Filt Rate - Afr Amer 34 mL/min (>60); Glucose 195 mg/dL (74-106); Potassium 3.6 mmol/L (3.5-5.1); Rheumatoid Factor < 10.0 IU/mL (<15); Sodium Level 142 mmol/L (136-145)
[2020-08-07 15:16] LABS: ANTINUCLEAR ANTIBODIES DIRECT Negative (Negative)
[2020-08-11 16:08] LABS: Cytoplasmic Ab (C-ANCA) <1:20 titer (Neg:<1:20)
[2020-08-11 20:09] LABS: CCP IgG Antibodies 6 units (0-19); Perinuclear Ab (P-ANCA) <1:20 titer (Neg:<1:20)
== END ==
PROVIDERS: Internal Medicine Cardiovascular Disease; PCP Family Medicine; Referring Provider Nurse Practitioner Acute Care; Visit Provider Nurse Practitioner Acute Care
DX: I27.21 Secondary pulmonary arterial hypertension (principal); R06.00 Dyspnea, unspecified; I50.32 Chronic diastolic (congestive) heart failure; E10.42 Type 1 diabetes mellitus with diabetic polyneuropathy; E10.65 Type 1 diabetes mellitus with hyperglycemia; Z79.4 Long term (current) use of insulin
CPT/HCPCS: 36415; 80048; 83036; 86038; 86200; 86225; 86235; 86256; 86431

== ENCOUNTER → 2020-08-13 13:00 | Outpatient (CLI) | payer OTHER, SELFPAY ==
[2020-08-06 07:42] VITALS: BMI 60.0
== END ==
PROVIDERS: PCP Family Medicine; Referring Provider Nurse Practitioner Acute Care; Visit Provider Nurse Practitioner Acute Care
DX: G47.33 Obstructive sleep apnea (adult) (pediatric) (principal)
CPT/HCPCS: 98960; G0463

== ENCOUNTER → 2020-08-31 16:00 | Outpatient (CLI) | payer OTHER, SELFPAY ==
[2020-08-24 15:34] VITALS: BMI 63.5
[2020-08-31 19:20] LABS: Anion Gap 6 (5-15); BUN 45 mg/dL (7-18); BUN/Creat Ratio 27.1 RATIO (10-20); Calcium,Total 9.3 mg/dL (8.5-10.1); Chloride 92 mmol/L (98-107); Creatinine, Serum 1.66 mg/dL (0.55-1.02); EST Glomerular Filtration Rate 33 mL/min (>60); Est Glom Filt Rate - Afr Amer 40 mL/min (>60); Glucose 487 mg/dL (74-106); Potassium 4.4 mmol/L (3.5-5.1); Sodium Level 135 mmol/L (136-145)
== END ==
PROVIDERS: PCP Family Medicine; Referring Provider Physician Assistant Medical; Visit Provider Physician Assistant Medical
DX: I50.33 Acute on chronic diastolic (congestive) heart failure (principal)
CPT/HCPCS: 36415; 80048

== ENCOUNTER → 2021-08-05 | Outpatient (CLI) | payer OTHER, SELFPAY ==
[2021-08-05 15:13] LABS: Absolute Lymphocyte Count 1.84 X10^3/uL (0.83-4.51); Absolute Neutrophil Count 7.6 X10^3/uL (2.0-7.7); Basophil# 0.04 X10^3/uL; Basophil% 0.4 % (0-1); Eosinophil# 0.21 X10^3/uL; Hematocrit 41.1 % (37-47); Hemoglobin 13.5 g/dL (12.0-15.0); Lymphocyte # 1.84 X10^3/ul (0.83-4.51); Lymphocyte % 17.8 % (19-41); Mean Corp Hgb Conc 32.8 g/dL (32-36); Mean Corpuscular Hgb 31.9 pg (27.0-32.0); Mean Corpuscular Volume 97.2 fL (81-99); Mean Platelet Vol. 10.1 fl (6.2-12.0); Monocyte# 0.58 X10^3/uL; Monocyte% 5.6 % (0-10); NRBC Flagged by Analyzer 0.2 % (0-5); Neutrophil # 7.63 X10^3/uL (2.7-7.7); Neutrophil % 73.8 % (47-70); Platelet Count 251 K/mm3 (150-450); RBC Distribution Width CV 13.4 % (11.6-14.6); RBC Distribution Width SD 46.4 fl (35.1-43.9); Red Blood Count 4.23 M/mm3 (4.2-5.4); White Blood Count 10.3 K/mm3 (4.4-11.0)
[2021-08-05 15:43] LABS: BNP,B-Type NATRIURETIC PEPTIDE 25.2 pg/mL (0-100)
[2021-08-05 17:50] LABS: ALB/GLOB Ratio 0.8 RATIO (0.9-2.4); AST(SGOT) 16 U/L (15-37); Alanine Aminotransfer ALT/SGPT 21 U/L (13-56); Albumin, Serum 3.2 g/dL (3.2-5.0); Alkaline Phosphatase 99 U/L (45-117); Anion Gap 12 (5-15); BUN 39 mg/dL (7-18); BUN/Creat Ratio 20.5 RATIO (10-20); Calcium,Total 9.3 mg/dL (8.5-10.1); Chloride 100 mmol/L (98-107); EST Glomerular Filtration Rate 28 mL/min (>60); Est Glom Filt Rate - Afr Amer 34 mL/min (>60); Free T3 2.5 pg/mL (2.18-3.98); Globulin 3.9 g/dL (2.2-4.2); Glucose 235 mg/dL (74-106); Potassium 3.7 mmol/L (3.5-5.1); Protein, Total 7.1 g/dL (6.4-8.2); Sodium Level 141 mmol/L (136-145); T4 Free Direct 1.68 ng/dL (0.76-1.46); Thyroid Stim Hormone (TSH) 0.98 uIU/mL (0.358-3.74)
== END | disposition home or self-care (01) ==
LOC: MTLAB 11:55
PROVIDERS: PCP Family Medicine; Referring Provider Family Medicine; Visit Provider Family Medicine
DX: E03.9 Hypothyroidism, unspecified (principal); I50.43 Acute on chronic combined systolic (congestive) and diastolic (congestive) heart failure; E11.65 Type 2 diabetes mellitus with hyperglycemia; E11.22 Type 2 diabetes mellitus with diabetic chronic kidney disease; N18.32 Chronic kidney disease, stage 3b
CPT/HCPCS: 36415; 80053; 83880; 84439; 84443; 84481; 85025

== ENCOUNTER 2021-09-01 09:00 | Outpatient (REF) | payer SELFPAY ==
[2021-09-01 09:56] LABS: Hematocrit 35.9 % (37-47); Hemoglobin 11.8 g/dL (12.0-15.0); Mean Corp Hgb Conc 32.9 g/dL (32-36); Mean Corpuscular Hgb 32.2 pg (27.0-32.0); Mean Corpuscular Volume 97.8 fL (81-99); Mean Platelet Vol. 9.7 fl (6.2-12.0); Platelet Count 172 K/mm3 (150-450); RBC Distribution Width CV 13.4 % (11.6-14.6); RBC Distribution Width SD 47.9 fl (35.1-43.9); Red Blood Count 3.67 M/mm3 (4.2-5.4)
[2021-09-01 10:51] LABS: Anion Gap 4 (5-15); BUN 48 mg/dL (7-18); BUN/Creat Ratio 29.4 RATIO (10-20); Calcium,Total 9.7 mg/dL (8.5-10.1); Chloride 103 mmol/L (98-107); Creatinine, Serum 1.63 mg/dL (0.55-1.02); EST Glomerular Filtration Rate 34 mL/min (>60); Est Glom Filt Rate - Afr Amer 41 mL/min (>60); Glucose 98 mg/dL (74-106); Potassium 4.1 mmol/L (3.5-5.1); Sodium Level 139 mmol/L (136-145)
== END 2021-09-01 23:59 | disposition home or self-care (01) ==
LOC: OLS.HOSPIC 09:00
PROVIDERS: PCP Family Medicine
DX: E11.65 Type 2 diabetes mellitus with hyperglycemia (principal); E11.22 Type 2 diabetes mellitus with diabetic chronic kidney disease; N18.4 Chronic kidney disease, stage 4 (severe)
CPT/HCPCS: 36415; 80048; 83036; 85027

== ENCOUNTER → 2021-12-01 | Outpatient (CLI) | payer OTHER, SELFPAY ==
[2021-12-01 15:00] LABS: Absolute Lymphocyte Count 1.25 X10^3/uL (0.83-4.51); Absolute Neutrophil Count 6.5 X10^3/uL (2.0-7.7); Basophil# 0.03 X10^3/uL; Basophil% 0.4 % (0-1); Eosinophil# 0.11 X10^3/uL; Eosinophils% 1.3 % (0-5); Hematocrit 39.7 % (37-47); Hemoglobin 13.1 g/dL (12.0-15.0); Lymphocyte # 1.25 X10^3/ul (0.83-4.51); Lymphocyte % 14.7 % (19-41); Mean Corpuscular Hgb 31.4 pg (27.0-32.0); Mean Corpuscular Volume 95.2 fL (81-99); Mean Platelet Vol. 10.1 fl (6.2-12.0); Monocyte# 0.56 X10^3/uL; Monocyte% 6.6 % (0-10); NRBC Flagged by Analyzer 0 % (0-5); Neutrophil % 76.2 % (47-70); Platelet Count 206 K/mm3 (150-450); RBC Distribution Width CV 13.4 % (11.6-14.6); RBC Distribution Width SD 45.6 fl (35.1-43.9); Red Blood Count 4.17 M/mm3 (4.2-5.4); White Blood Count 8.5 K/mm3 (4.4-11.0)
[2021-12-01 15:17] LABS: ALB/GLOB Ratio 0.8 RATIO (0.9-2.4); AST(SGOT) 4 U/L (15-37); Alanine Aminotransfer ALT/SGPT 18 U/L (13-56); Alkaline Phosphatase 105 U/L (45-117); Anion Gap 5 (5-15); BUN 57 mg/dL (7-18); BUN/Creat Ratio 33.3 RATIO (10-20); Calcium,Total 8.9 mg/dL (8.5-10.1); Chloride 100 mmol/L (98-107); Cholesterol 165 mg/dL (200); Creatinine, Serum 1.71 mg/dL (0.55-1.02); EST Glomerular Filtration Rate 32 mL/min (>60); Est Glom Filt Rate - Afr Amer 39 mL/min (>60); Globulin 3.9 g/dL (2.2-4.2); Glucose 309 mg/dL (74-106); High Density Lipoprotein 39 mg/dL; Potassium 5.2 mmol/L (3.5-5.1); Protein, Total 6.9 g/dL (6.4-8.2); Sodium Level 134 mmol/L (136-145); Triglycerides 128 mg/dL; Very Low Density Lipoprotein 26 mg/dL (5-40)
[2021-12-01 15:26] LABS: BNP,B-Type NATRIURETIC PEPTIDE 60.2 pg/mL (0-100)
== END | disposition home or self-care (01) ==
LOC: BFHLAB 10:39
PROVIDERS: PCP Family Medicine; Visit Provider Family Medicine
DX: E78.5 Hyperlipidemia, unspecified (principal); I50.31 Acute diastolic (congestive) heart failure; E11.65 Type 2 diabetes mellitus with hyperglycemia; Z51.81 Encounter for therapeutic drug level monitoring
CPT/HCPCS: 36415; 80053; 80061; 81001; 83880; 85025; 87086; 87088

== ENCOUNTER → 2022-03-07 | Outpatient (CLI) | payer OTHER, MEDICARE, SELFPAY ==
[2022-03-07 15:35] LABS: Absolute Lymphocyte Count 1.41 X10^3/uL (0.83-4.51); Absolute Neutrophil Count 8.6 X10^3/uL (2.0-7.7); Basophil# 0.03 X10^3/uL; Basophil% 0.3 % (0-1); Eosinophil# 0.25 X10^3/uL; Eosinophils% 2.3 % (0-5); Hematocrit 38.6 % (37-47); Hemoglobin 12.4 g/dL (12.0-15.0); Lymphocyte # 1.41 X10^3/ul (0.83-4.51); Mean Corp Hgb Conc 32.1 g/dL (32-36); Mean Corpuscular Hgb 29.7 pg (27.0-32.0); Mean Corpuscular Volume 92.6 fL (81-99); Mean Platelet Vol. 10.3 fl (6.2-12.0); Monocyte# 0.57 X10^3/uL; Monocyte% 5.2 % (0-10); NRBC Flagged by Analyzer 0 % (0-5); Neutrophil # 8.57 X10^3/uL (2.7-7.7); Neutrophil % 78.7 % (47-70); Platelet Count 249 K/mm3 (150-450); RBC Distribution Width CV 13.8 % (11.6-14.6); RBC Distribution Width SD 46.7 fl (35.1-43.9); Red Blood Count 4.17 M/mm3 (4.2-5.4); White Blood Count 10.9 K/mm3 (4.4-11.0)
[2022-03-07 15:58] LABS: BNP,B-Type NATRIURETIC PEPTIDE 268.8 pg/mL (0-100)
[2022-03-07 16:00] LABS: ALB/GLOB Ratio 0.7 RATIO (0.9-2.4); AST(SGOT) 11 U/L (15-37); Alanine Aminotransfer ALT/SGPT 15 U/L (13-56); Alkaline Phosphatase 79 U/L (45-117); Anion Gap 9 (5-15); BUN 42 mg/dL (7-18); BUN/Creat Ratio 26.6 RATIO (10-20); Calcium,Total 9.7 mg/dL (8.5-10.1); Chloride 103 mmol/L (98-107); Creatinine, Serum 1.58 mg/dL (0.55-1.02); EST Glomerular Filtration Rate 35 mL/min (>60); Est Glom Filt Rate - Afr Amer 42 mL/min (>60); Globulin 4.1 g/dL (2.2-4.2); Glucose 85 mg/dL (74-106); Potassium 4.6 mmol/L (3.5-5.1); Protein, Total 7.1 g/dL (6.4-8.2); Sodium Level 140 mmol/L (136-145); Uric Acid 6.4 mg/dL (2.6-6.0)
[2022-03-07 16:02] LABS: Erythrocyte Sedimentation Rate 42 mm/hr (0-30)
== END | disposition home or self-care (01) ==
LOC: BFHLAB 13:23
PROVIDERS: PCP Family Medicine; Visit Provider Family Medicine
DX: I50.9 Heart failure, unspecified (principal); D69.2 Other nonthrombocytopenic purpura; E53.8 Deficiency of other specified B group vitamins; M10.9 Gout, unspecified
CPT/HCPCS: 36415; 80053; 83880; 84550; 85025; 85652; 86140